=== PATIENT | male | born 1955 | race Two or more races ===

== ENCOUNTER 2020-05-18 18:42 | Inpatient (IN) | payer MEDICARE, MEDICAID ==
[~2020-05-18] VITALS: Ht 172.7 cm; Wt 81.4 kg
[2020-05-18 19:17] LABS: BASOPHILS % (AUTO) 0.3 % (0.0-2.0); EOSINOPHILS % (AUTO) 0 % (1.0-6.0); HEMATOCRIT 46.1 % (41-53); HEMOGLOBIN 15.4 g/dL (13.5-17.5); LYMPHOCYTES # (AUTO) 0.9 K/uL (1.0-4.8); LYMPHOCYTES % (AUTO) 5.3 % (22.0-44.0); MEAN CORPUSCULAR HEMOGLOBIN 30.2 pg (26.0-34.0); MEAN CORPUSCULAR HGB CONC 33.4 G/dL (31.0-37.0); MEAN CORPUSCULAR VOLUME 90 fL (80-100); MONOCYTES % (AUTO) 5.6 % (2.0-9.0); NEUTROPHILS # (AUTO) 15.6 K/uL (1.8-7.7); PLATELET COUNT (AUTO) 264 K/uL (150-450); RED BLOOD CELL COUNT(AUTO) 5.11 MIL/uL (4.50-5.90); RED CELL DISTRIBUTION WIDTH 13.1 % (11.5-14.5)
[2020-05-18 19:18] LABS: ABG BASE EXCESS 1.8 mmol/L (-2.0-3.0); ABG CARBOXYHEMOGLOBIN 0.8 % (0.0-1.5); ABG HCO3 26.4 mmol/L (22.0-26.0); ABG METHEMOGLOBIN 0.2 % (0.0-1.5); ABG PCO2 35 mmHg (35-45); ABG TOTAL HEMOGLOBIN 16.2 G/dL (12.0-18.0); PO2, ARTERIAL BG 72.7 mmHg (79.0-87.0); SOURCE, BLOOD GAS ARTERIAL; TEMPERATURE, FAHRENHEIT, BG 98.6 FAHREN (96.0-98.6)
[2020-05-18 19:19] LABS: ABG A-A DIFF O2 605.6 mmHg (10-20.0); ABG OXYGEN CONTENT 21.4 mL/dL (15.0-23.0); ABG OXYGEN SATURATION 94.9 % (95.0-98.0)
[2020-05-18 19:27] LABS: ANION GAP 11 mmol/L (8-16); CALCIUM, TOTAL 8.8 mg/dL (8.8-10.5); CARBON DIOXIDE 26 mmol/L (22-29); CHLORIDE 104 mmol/L (98-107); CREATININE 0.95 mg/dL (0.60-1.30); GLOMERULAR FILTR. RATE CALC > 60 mL/min (>60); GLUCOSE,RANDOM 198 mg/dL (70-110); POTASSIUM 3.5 mmol/L (3.5-5.1); SODIUM SERUM 141 mmol/L (136-145); UREA NITROGEN, BLOOD 27 mg/dL (7-18)
[2020-05-18 19:29] LABS: NEUTROPHILS % (AUTO) 88.8 % (40.0-70.0)
[2020-05-18 19:35] LABS: LACTIC ACID 1.4 mmol/L (0.4-2.0)
[2020-05-18 19:58] LABS: B-TYPE NATRIURETIC PEPTIDE 72 pg/mL (0-100)
[2020-05-18 20:05] LABS: O2 DEVICE,BLOOD GAS NON REBREATHER (ROOM AIR); SITE, BLOOD GAS LFT RADIAL
[2020-05-18 20:07] LABS: ALANINE AMINOTRANSFERASE 45 U/L (12-78); ALKALINE PHOSPHATASE 77 U/L (46-116); ASPARTATE AMINOTRANSFERASE 20 U/L (15-37); BILIRUBIN,TOTAL 0.8 mg/dL (0.1-1.0); C-REACTIVE PROTEIN QUANT 7.74 mg/dL (0.00-0.30); CREATINE KINASE, TOTAL ONLY 21 U/L (39-308); FERRITIN 1702 ng/mL (26-388); LACTATE DEHYDROGENASE 331 U/L (85-227); TOTAL PROTEIN, SERUM 7.3 g/dL (6.4-8.2)
[2020-05-18] MEDS ORDERED: CefTRIAXone 1 GM/DEXTROSE 50 ML IV ONE (20:15)
[2020-05-18] MEDS ORDERED: AZITHROMYCIN 500 MG/NS 250 ML IV ONE (20:15)
[2020-05-18 20:17] LABS: D-DIMER 1.02 mg/L FEU (0.00-0.50); INR 1.1 (0.9-1.1); PROTHROMBIN TIME 10.8 SEC (9.4-11.6)
[2020-05-18] MEDS ORDERED: DEXTROSE 50%-WATER 25 GM/50 ML SYRINGE IVP PRN (20:30)
[2020-05-18] MEDS ORDERED: ACETAMINOPHEN 325 MG TABLET PO PRN (20:45)
[2020-05-18] MEDS ORDERED: DEXAMETHASONE SOD PHOS 4 MG/ML VIAL IVP SCH (21:00)
[2020-05-18] MEDS ORDERED: REMDESIVIR **INVESTIGATIONAL** 200 MG in SODIUM CHLORIDE 0.9% 210 ML IV ONE (22:00)
[2020-05-18] MEDS ORDERED: SODIUM CHLORIDE 0.9% 500 ML IV ONE (22:56)
[2020-05-18] MEDS: DOCUSATE SODIUM 100 MG CAPSULE PO SCH (23:01)
[2020-05-18] MEDS: ZINC SULFATE 220 MG CAPSULE PO SCH (23:01)
[2020-05-18] MEDS: ENOXAPARIN SODIUM 40 MG/0.4 ML PF SYRINGE SQ SCH (23:01)
[2020-05-19] VITALS (12 sets, daily range): BP systolic 115–155; BP diastolic 57–97
[2020-05-19] MEDS: DEXAMETHASONE SOD PHOS 4 MG/ML VIAL IVP SCH ×4 (00:13→18:18)
[2020-05-19] MEDS: INSULIN LISPRO 100 UNITS/ML SQ PRN ×4 (05:45→22:18)
[2020-05-19 05:53] LABS: GLUCOMETER DEV NAME(LOC) 5N.3; GLUCOSE,POINT OF CARE 197 MG/DL (70-110)
[2020-05-19 07:07] LABS: ALANINE AMINOTRANSFERASE 40 U/L (12-78); ALKALINE PHOSPHATASE 79 U/L (46-116); ANION GAP 12 mmol/L (8-16); ASPARTATE AMINOTRANSFERASE 20 U/L (15-37); BILIRUBIN,TOTAL 1.2 mg/dL (0.1-1.0); CALCIUM, TOTAL 8.7 mg/dL (8.8-10.5); CARBON DIOXIDE 24 mmol/L (22-29); CHLORIDE 103 mmol/L (98-107); GLOMERULAR FILTR. RATE CALC > 60 mL/min (>60); GLUCOSE,RANDOM 194 mg/dL (70-110); POTASSIUM 3.8 mmol/L (3.5-5.1); SODIUM SERUM 139 mmol/L (136-145); TOTAL PROTEIN, SERUM 7.4 g/dL (6.4-8.2); UREA NITROGEN, BLOOD 26 mg/dL (7-18)
[2020-05-19] MEDS: FAMOTIDINE 20 MG TABLET PO SCH (08:47)
[2020-05-19] MEDS: DOCUSATE SODIUM 100 MG CAPSULE PO SCH ×2 (08:47→21:10)
[2020-05-19] MEDS: ZINC SULFATE 220 MG CAPSULE PO SCH ×2 (08:47→21:10)
[2020-05-19] MEDS: ENOXAPARIN SODIUM 40 MG/0.4 ML PF SYRINGE SQ SCH ×2 (08:47→21:10)
[2020-05-19 12:37] LABS: C-REACTIVE PROTEIN QUANT 7.47 mg/dL (0.00-0.30); FERRITIN 1819 ng/mL (26-388); LACTATE DEHYDROGENASE 516 U/L (85-227)
[2020-05-19 12:58] LABS: D-DIMER 0.9 mg/L FEU (0.00-0.50); INR 1.1 (0.9-1.1); PROTHROMBIN TIME 11.4 SEC (9.4-11.6)
[2020-05-19 13:06] LABS: GLUCOMETER DEV NAME(LOC) 5S.1; GLUCOSE,POINT OF CARE 218 MG/DL (70-110)
[2020-05-19 19:48] LABS: GLUCOMETER DEV NAME(LOC) 5S.2A; GLUCOSE,POINT OF CARE 189 MG/DL (70-110)
[2020-05-19] MEDS ORDERED: SODIUM CHLORIDE 0.9% 500 ML IV ONE (21:49)
[2020-05-20 00:30] VITALS: BP 128/80
[2020-05-20 00:32] LABS: GLUCOMETER DEV NAME(LOC) 5N.3; GLUCOSE,POINT OF CARE 170 MG/DL (70-110)
[2020-05-20] MEDS: REMDESIVIR **INVESTIGATIONAL** 100 MG in SODIUM CHLORIDE 0.9% 230 ML IV SCH ×2 (00:44→23:31)
[2020-05-20] MEDS: DEXAMETHASONE SOD PHOS 4 MG/ML VIAL IVP SCH ×4 (00:45→17:13)
[2020-05-20 04:45] VITALS: BP 133/45
[2020-05-20] MEDS: INSULIN LISPRO 100 UNITS/ML SQ PRN ×4 (06:08→21:20)
[2020-05-20 06:10] LABS: GLUCOMETER DEV NAME(LOC) 5S.2A; GLUCOSE,POINT OF CARE 176 MG/DL (70-110)
[2020-05-20 07:19] VITALS: BP 136/76
[2020-05-20 08:01] LABS: BASOPHILS % (AUTO) 0.2 % (0.0-2.0); EOSINOPHILS % (AUTO) 0 % (1.0-6.0); HEMATOCRIT 42.9 % (41-53); HEMOGLOBIN 14.7 g/dL (13.5-17.5); LYMPHOCYTES # (AUTO) 0.6 K/uL (1.0-4.8); LYMPHOCYTES % (AUTO) 5.1 % (22.0-44.0); MEAN CORPUSCULAR HGB CONC 34.2 G/dL (31.0-37.0); MEAN CORPUSCULAR VOLUME 91 fL (80-100); MONOCYTES # (AUTO) 0.6 K/uL (0.1-1.0); MONOCYTES % (AUTO) 4.8 % (2.0-9.0); NEUTROPHILS # (AUTO) 10.7 K/uL (1.8-7.7); PLATELET COUNT (AUTO) 235 K/uL (150-450); RED BLOOD CELL COUNT(AUTO) 4.74 MIL/uL (4.50-5.90); RED CELL DISTRIBUTION WIDTH 13.4 % (11.5-14.5)
[2020-05-20 08:21] LABS: NEUTROPHILS % (AUTO) 89.9 % (40.0-70.0)
[2020-05-20 09:00] LABS: ALANINE AMINOTRANSFERASE 37 U/L (12-78); ALBUMIN 2.8 g/dL (3.4-5.0); ALKALINE PHOSPHATASE 75 U/L (46-116); ANION GAP 10 mmol/L (8-16); ASPARTATE AMINOTRANSFERASE 20 U/L (15-37); BILIRUBIN,TOTAL 1.2 mg/dL (0.1-1.0); C-REACTIVE PROTEIN QUANT 7.27 mg/dL (0.00-0.30); CALCIUM, TOTAL 8.5 mg/dL (8.8-10.5); CARBON DIOXIDE 25 mmol/L (22-29); CHLORIDE 103 mmol/L (98-107); CREATININE 0.85 mg/dL (0.60-1.30); FERRITIN 1877 ng/mL (26-388); GLOMERULAR FILTR. RATE CALC > 60 mL/min (>60); GLUCOSE,RANDOM 178 mg/dL (70-110); LACTATE DEHYDROGENASE 333 U/L (85-227); POTASSIUM 4.1 mmol/L (3.5-5.1); SODIUM SERUM 138 mmol/L (136-145); UREA NITROGEN, BLOOD 34 mg/dL (7-18)
[2020-05-20] MEDS: FAMOTIDINE 20 MG TABLET PO SCH (09:46)
[2020-05-20] MEDS: DOCUSATE SODIUM 100 MG CAPSULE PO SCH ×2 (09:46→21:05)
[2020-05-20] MEDS: ENOXAPARIN SODIUM 40 MG/0.4 ML PF SYRINGE SQ SCH ×2 (09:46→21:08)
[2020-05-20] MEDS: ZINC SULFATE 220 MG CAPSULE PO SCH ×2 (09:46→21:05)
[2020-05-20 10:55] LABS: THYROID STIMULATING HORMONE 0.98 uIU/mL (0.36-3.74)
[2020-05-20 11:40] VITALS: BP 137/76
[2020-05-20 12:20] LABS: GLUCOMETER DEV NAME(LOC) 5N.3; GLUCOSE,POINT OF CARE 245 MG/DL (70-110)
[2020-05-20 16:00] VITALS: BP 120/79
[2020-05-20 18:06] LABS: GLUCOMETER DEV NAME(LOC) 5S.2A; GLUCOSE,POINT OF CARE 211 MG/DL (70-110)
[2020-05-20 20:16] VITALS: BP 136/74
[2020-05-20 21:36] LABS: GLUCOMETER DEV NAME(LOC) 5S.1; GLUCOSE,POINT OF CARE 272 MG/DL (70-110)
[2020-05-21] VITALS (7 sets, daily range): BP systolic 114–146; BP diastolic 56–87
[2020-05-21] MEDS ORDERED: TOCILIZUMAB 600 MG in SODIUM CHLORIDE 0.9% 70 ML IV ONE ×2
[2020-05-21] MEDS: DEXAMETHASONE SOD PHOS 4 MG/ML VIAL IVP SCH ×3 (00:52→13:19)
[2020-05-21] MEDS ORDERED: SODIUM CHLORIDE 0.9% 250 ML IV ONE (01:04)
[2020-05-21] MEDS: INSULIN LISPRO 100 UNITS/ML SQ PRN ×4 (06:30→22:37)
[2020-05-21 07:11] LABS: BASOPHILS % (AUTO) 0.3 % (0.0-2.0); EOSINOPHILS % (AUTO) 0 % (1.0-6.0); HEMATOCRIT 42.8 % (41-53); HEMOGLOBIN 14.7 g/dL (13.5-17.5); LYMPHOCYTES # (AUTO) 0.6 K/uL (1.0-4.8); LYMPHOCYTES % (AUTO) 4.6 % (22.0-44.0); MEAN CORPUSCULAR HEMOGLOBIN 30.9 pg (26.0-34.0); MEAN CORPUSCULAR HGB CONC 34.4 G/dL (31.0-37.0); MEAN CORPUSCULAR VOLUME 90 fL (80-100); MONOCYTES # (AUTO) 0.5 K/uL (0.1-1.0); NEUTROPHILS # (AUTO) 11.6 K/uL (1.8-7.7); PLATELET COUNT (AUTO) 260 K/uL (150-450); RED BLOOD CELL COUNT(AUTO) 4.76 MIL/uL (4.50-5.90); RED CELL DISTRIBUTION WIDTH 13.3 % (11.5-14.5)
[2020-05-21 07:14] LABS: NEUTROPHILS % (AUTO) 91.1 % (40.0-70.0)
[2020-05-21 07:46] LABS: GLUCOMETER DEV NAME(LOC) 5S.2A; GLUCOSE,POINT OF CARE 232 MG/DL (70-110)
[2020-05-21 07:53] LABS: ALANINE AMINOTRANSFERASE 31 U/L (12-78); ALBUMIN 2.6 g/dL (3.4-5.0); ALKALINE PHOSPHATASE 72 U/L (46-116); ANION GAP 11 mmol/L (8-16); ASPARTATE AMINOTRANSFERASE 15 U/L (15-37); BILIRUBIN,TOTAL 1.1 mg/dL (0.1-1.0); C-REACTIVE PROTEIN QUANT 3.71 mg/dL (0.00-0.30); CALCIUM, TOTAL 8.4 mg/dL (8.8-10.5); CARBON DIOXIDE 25 mmol/L (22-29); CHLORIDE 102 mmol/L (98-107); CREATININE 0.83 mg/dL (0.60-1.30); FERRITIN 1232 ng/mL (26-388); GLOMERULAR FILTR. RATE CALC > 60 mL/min (>60); GLUCOSE,RANDOM 223 mg/dL (70-110); POTASSIUM 4.3 mmol/L (3.5-5.1); SODIUM SERUM 138 mmol/L (136-145); TOTAL PROTEIN, SERUM 6.7 g/dL (6.4-8.2); UREA NITROGEN, BLOOD 32 mg/dL (7-18)
[2020-05-21] MEDS: DOCUSATE SODIUM 100 MG CAPSULE PO SCH ×2 (08:20→22:35)
[2020-05-21] MEDS: FAMOTIDINE 20 MG TABLET PO SCH (08:20)
[2020-05-21] MEDS: ZINC SULFATE 220 MG CAPSULE PO SCH ×2 (08:20→22:35)
[2020-05-21] MEDS: ENOXAPARIN SODIUM 40 MG/0.4 ML PF SYRINGE SQ SCH ×2 (08:22→22:34)
[2020-05-21 17:22] LABS: GLUCOMETER DEV NAME(LOC) 5N.3; GLUCOSE,POINT OF CARE 235 MG/DL (70-110)
[2020-05-21] MEDS: REMDESIVIR **INVESTIGATIONAL** 100 MG in SODIUM CHLORIDE 0.9% 230 ML IV SCH (22:49)
[2020-05-21 23:14] LABS: GLUCOSE,POINT OF CARE 247 MG/DL (70-110)
[2020-05-22] VITALS: BP 144/77
[2020-05-22 04:00] VITALS: BP 114/55
[2020-05-22 06:07] LABS: BASOPHILS % (AUTO) 0.2 % (0.0-2.0); EOSINOPHILS % (AUTO) 0.3 % (1.0-6.0); HEMATOCRIT 46.2 % (41-53); HEMOGLOBIN 15.8 g/dL (13.5-17.5); LYMPHOCYTES # (AUTO) 0.9 K/uL (1.0-4.8); LYMPHOCYTES % (AUTO) 8.7 % (22.0-44.0); MEAN CORPUSCULAR HEMOGLOBIN 30.9 pg (26.0-34.0); MEAN CORPUSCULAR HGB CONC 34.1 G/dL (31.0-37.0); MEAN CORPUSCULAR VOLUME 91 fL (80-100); MONOCYTES # (AUTO) 0.5 K/uL (0.1-1.0); MONOCYTES % (AUTO) 4.6 % (2.0-9.0); PLATELET COUNT (AUTO) 254 K/uL (150-450); RED CELL DISTRIBUTION WIDTH 13.1 % (11.5-14.5)
[2020-05-22 06:27] LABS: NEUTROPHILS % (AUTO) 86.2 % (40.0-70.0)
[2020-05-22 06:46] LABS: ALANINE AMINOTRANSFERASE 32 U/L (12-78); ALBUMIN 2.9 g/dL (3.4-5.0); ALKALINE PHOSPHATASE 78 U/L (46-116); ANION GAP 8 mmol/L (8-16); ASPARTATE AMINOTRANSFERASE 19 U/L (15-37); C-REACTIVE PROTEIN QUANT 2.36 mg/dL (0.00-0.30); CALCIUM, TOTAL 8.8 mg/dL (8.8-10.5); CARBON DIOXIDE 26 mmol/L (22-29); CHLORIDE 103 mmol/L (98-107); CREATININE 0.77 mg/dL (0.60-1.30); FERRITIN 867 ng/mL (26-388); GLOMERULAR FILTR. RATE CALC > 60 mL/min (>60); GLUCOSE,RANDOM 149 mg/dL (70-110); POTASSIUM 4.1 mmol/L (3.5-5.1); SODIUM SERUM 137 mmol/L (136-145); TOTAL PROTEIN, SERUM 6.9 g/dL (6.4-8.2); UREA NITROGEN, BLOOD 30 mg/dL (7-18)
[2020-05-22 08:00] VITALS: BP 127/79
[2020-05-22] MEDS ORDERED: DEXAMETHASONE SOD PHOS 4 MG/ML VIAL IVP SCH (09:00)
[2020-05-22] MEDS: DOCUSATE SODIUM 100 MG CAPSULE PO SCH ×2 (09:00→21:22)
[2020-05-22] MEDS: ENOXAPARIN SODIUM 40 MG/0.4 ML PF SYRINGE SQ SCH ×2 (09:12→23:20)
[2020-05-22] MEDS: DEXAMETHASONE SOD PHOS 4 MG/ML VIAL IVP SCH (09:13)
[2020-05-22] MEDS: FAMOTIDINE 20 MG TABLET PO SCH (09:13)
[2020-05-22] MEDS: ZINC SULFATE 220 MG CAPSULE PO SCH ×2 (09:14→21:22)
[2020-05-22 10:58] LABS: GLUCOSE,POINT OF CARE 146 MG/DL (70-110)
[2020-05-22 12:00] VITALS: BP 136/73
[2020-05-22 16:00] VITALS: BP 118/79
[2020-05-22 16:08] LABS: ABG A-A DIFF O2 603.1 mmHg (10-20.0); ABG BASE EXCESS -1.2 mmol/L (-2.0-3.0); ABG CARBOXYHEMOGLOBIN 0.7 % (0.0-1.5); ABG HCO3 24.2 mmol/L (22.0-26.0); ABG METHEMOGLOBIN 0.2 % (0.0-1.5); ABG OXYGEN CONTENT 22.9 mL/dL (15.0-23.0); ABG OXYGEN SATURATION 95.6 % (95.0-98.0); ABG OXYHEMOGLOBIN 94.7 % (94.0-100.0); ABG PCO2 34 mmHg (35-45); ABG PH 7.451 (7.35-7.450); ABG TOTAL HEMOGLOBIN 17.2 G/dL (12.0-18.0); PO2, ARTERIAL BG 77.2 mmHg (79.0-87.0); SOURCE, BLOOD GAS ARTERIAL; TEMPERATURE, FAHRENHEIT, BG 98.1 FAHREN (96.0-98.6)
[2020-05-22 16:09] LABS: O2 DEVICE,BLOOD GAS HI FL CANNULA (ROOM AIR); SITE, BLOOD GAS RT RADIAL
[2020-05-22 20:00] VITALS: BP 113/76
[2020-05-22 21:41] LABS: GLUCOMETER DEV NAME(LOC) 4E.2; GLUCOSE,POINT OF CARE 213 MG/DL (70-110)
[2020-05-22] MEDS: REMDESIVIR **INVESTIGATIONAL** 100 MG in SODIUM CHLORIDE 0.9% 230 ML IV SCH (23:20)
[2020-05-22] MEDS: INSULIN LISPRO 100 UNITS/ML SQ PRN (23:46)
[2020-05-23] VITALS: BP 115/71
[2020-05-23 04:00] VITALS: BP 90/54
[2020-05-23 06:17] LABS: BASOPHILS % (AUTO) 0.4 % (0.0-2.0); EOSINOPHILS % (AUTO) 1.9 % (1.0-6.0); HEMATOCRIT 46.6 % (41-53); HEMOGLOBIN 15.8 g/dL (13.5-17.5); LYMPHOCYTES # (AUTO) 0.8 K/uL (1.0-4.8); LYMPHOCYTES % (AUTO) 7.6 % (22.0-44.0); MEAN CORPUSCULAR HEMOGLOBIN 30.6 pg (26.0-34.0); MEAN CORPUSCULAR HGB CONC 33.8 G/dL (31.0-37.0); MEAN CORPUSCULAR VOLUME 90 fL (80-100); MONOCYTES # (AUTO) 0.4 K/uL (0.1-1.0); MONOCYTES % (AUTO) 3.7 % (2.0-9.0); NEUTROPHILS # (AUTO) 9.7 K/uL (1.8-7.7); PLATELET COUNT (AUTO) 242 K/uL (150-450); RED BLOOD CELL COUNT(AUTO) 5.16 MIL/uL (4.50-5.90)
[2020-05-23 06:42] LABS: NEUTROPHILS % (AUTO) 86.4 % (40.0-70.0)
[2020-05-23 06:44] LABS: GLUCOMETER DEV NAME(LOC) 4E.2; GLUCOSE,POINT OF CARE 174 MG/DL (70-110)
[2020-05-23 06:44] LABS: ALANINE AMINOTRANSFERASE 35 U/L (12-78); ALBUMIN 2.8 g/dL (3.4-5.0); ALKALINE PHOSPHATASE 84 U/L (46-116); ANION GAP 7 mmol/L (8-16); ASPARTATE AMINOTRANSFERASE 21 U/L (15-37); C-REACTIVE PROTEIN QUANT 1.13 mg/dL (0.00-0.30); CALCIUM, TOTAL 8.6 mg/dL (8.8-10.5); CARBON DIOXIDE 28 mmol/L (22-29); CHLORIDE 103 mmol/L (98-107); CREATININE 0.84 mg/dL (0.60-1.30); FERRITIN 950 ng/mL (26-388); GLOMERULAR FILTR. RATE CALC > 60 mL/min (>60); GLUCOSE,RANDOM 117 mg/dL (70-110); SODIUM SERUM 138 mmol/L (136-145); TOTAL PROTEIN, SERUM 6.5 g/dL (6.4-8.2); UREA NITROGEN, BLOOD 31 mg/dL (7-18)
[2020-05-23 06:48] LABS: GLUCOSE,POINT OF CARE 106 MG/DL (70-110)
[2020-05-23 08:00] VITALS: BP 128/77
[2020-05-23] MEDS: DEXAMETHASONE SOD PHOS 4 MG/ML VIAL IVP SCH (08:17)
[2020-05-23] MEDS: ZINC SULFATE 220 MG CAPSULE PO SCH ×2 (08:18→21:07)
[2020-05-23] MEDS: ENOXAPARIN SODIUM 40 MG/0.4 ML PF SYRINGE SQ SCH (08:18)
[2020-05-23] MEDS: FAMOTIDINE 20 MG TABLET PO SCH (08:18)
[2020-05-23] MEDS: DOCUSATE SODIUM 100 MG CAPSULE PO SCH ×2 (09:00→21:07)
[2020-05-23] MEDS ORDERED: SODIUM CHLORIDE 0.9% 500 ML IV ONE (10:55)
[2020-05-23 12:00] VITALS: BP 115/58
[2020-05-23 16:00] VITALS: BP 99/69
[2020-05-23 16:06] LABS: QUANTIFERON+, Nil Value 0.01 IU/mL; QUANTIFERON+,Mitogen Value 0.23 IU/mL; QUANTIFERON+,TB1 Antigen Value 0.01 IU/mL; QUANTIFERON, TB GOLD PLUS Indeterminate (Negative)
[2020-05-23 20:00] VITALS: BP 111/65
[2020-05-23] MEDS: ENOXAPARIN SODIUM 60 MG/0.6 ML PF SYRINGE SQ SCH (21:11)
[2020-05-23 23:04] LABS: GLUCOSE,POINT OF CARE 197 MG/DL (70-110)
[2020-05-24] VITALS: BP 94/59
[2020-05-24 04:00] VITALS: BP 97/58
[2020-05-24 06:09] LABS: GLUCOSE,POINT OF CARE 171 MG/DL (70-110)
[2020-05-24 07:10] LABS: BASOPHILS % (AUTO) 0.1 % (0.0-2.0); EOSINOPHILS % (AUTO) 3.1 % (1.0-6.0); HEMOGLOBIN 16.1 g/dL (13.5-17.5); LYMPHOCYTES # (AUTO) 0.8 K/uL (1.0-4.8); MEAN CORPUSCULAR HEMOGLOBIN 30.9 pg (26.0-34.0); MEAN CORPUSCULAR HGB CONC 34.2 G/dL (31.0-37.0); MEAN CORPUSCULAR VOLUME 90 fL (80-100); MONOCYTES # (AUTO) 0.4 K/uL (0.1-1.0); NEUTROPHILS # (AUTO) 9.3 K/uL (1.8-7.7); PLATELET COUNT (AUTO) 230 K/uL (150-450); RED CELL DISTRIBUTION WIDTH 13.1 % (11.5-14.5)
[2020-05-24 07:16] LABS: NEUTROPHILS % (AUTO) 85.8 % (40.0-70.0)
[2020-05-24 08:00] VITALS: BP 99/48
[2020-05-24] MEDS ORDERED: SODIUM CHLORIDE 0.9% 1,000 ML IV ONE (08:15)
[2020-05-24 08:16] LABS: ALANINE AMINOTRANSFERASE 41 U/L (12-78); ALBUMIN 2.9 g/dL (3.4-5.0); ALKALINE PHOSPHATASE 101 U/L (46-116); ANION GAP 11 mmol/L (8-16); ASPARTATE AMINOTRANSFERASE 25 U/L (15-37); BILIRUBIN,TOTAL 1.3 mg/dL (0.1-1.0); C-REACTIVE PROTEIN QUANT 0.57 mg/dL (0.00-0.30); CALCIUM, TOTAL 8.7 mg/dL (8.8-10.5); CARBON DIOXIDE 26 mmol/L (22-29); CHLORIDE 99 mmol/L (98-107); CREATININE 0.88 mg/dL (0.60-1.30); FERRITIN 967 ng/mL (26-388); GLOMERULAR FILTR. RATE CALC > 60 mL/min (>60); GLUCOSE,RANDOM 125 mg/dL (70-110); POTASSIUM 4.4 mmol/L (3.5-5.1); SODIUM SERUM 136 mmol/L (136-145); TOTAL PROTEIN, SERUM 6.6 g/dL (6.4-8.2); UREA NITROGEN, BLOOD 34 mg/dL (7-18)
[2020-05-24] MEDS: DEXAMETHASONE SOD PHOS 4 MG/ML VIAL IVP SCH (08:47)
[2020-05-24] MEDS: FAMOTIDINE 20 MG TABLET PO SCH (08:47)
[2020-05-24] MEDS: ZINC SULFATE 220 MG CAPSULE PO SCH ×2 (08:48→21:27)
[2020-05-24] MEDS: ENOXAPARIN SODIUM 60 MG/0.6 ML PF SYRINGE SQ SCH ×2 (08:48→21:26)
[2020-05-24] MEDS: DOCUSATE SODIUM 100 MG CAPSULE PO SCH ×2 (08:48→21:26)
[2020-05-24 12:00] VITALS: BP 112/72
[2020-05-24] MEDS: INSULIN LISPRO 100 UNITS/ML SQ PRN (12:08)
[2020-05-24 15:18] LABS: GLUCOSE,POINT OF CARE 128 MG/DL (70-110)
[2020-05-24 15:18] LABS: GLUCOSE,POINT OF CARE 212 MG/DL (70-110)
[2020-05-24 16:00] VITALS: BP_SYST 111; BP_SYST 135; BP_DIAS 61; BP_DIAS 79
[2020-05-24 18:27] LABS: GLUCOSE,POINT OF CARE 178 MG/DL (70-110)
[2020-05-24 20:00] VITALS: BP 121/72
[2020-05-25 04:00] VITALS: BP 127/72
[2020-05-25 06:51] LABS: BASOPHILS % (AUTO) 0.2 % (0.0-2.0); EOSINOPHILS % (AUTO) 2.8 % (1.0-6.0); HEMATOCRIT 48.2 % (41-53); HEMOGLOBIN 16.5 g/dL (13.5-17.5); LYMPHOCYTES # (AUTO) 0.9 K/uL (1.0-4.8); LYMPHOCYTES % (AUTO) 6.5 % (22.0-44.0); MEAN CORPUSCULAR HEMOGLOBIN 30.9 pg (26.0-34.0); MEAN CORPUSCULAR HGB CONC 34.3 G/dL (31.0-37.0); MEAN CORPUSCULAR VOLUME 90 fL (80-100); MONOCYTES # (AUTO) 0.7 K/uL (0.1-1.0); MONOCYTES % (AUTO) 4.8 % (2.0-9.0); NEUTROPHILS # (AUTO) 12.3 K/uL (1.8-7.7); PLATELET COUNT (AUTO) 199 K/uL (150-450); RED BLOOD CELL COUNT(AUTO) 5.33 MIL/uL (4.50-5.90); RED CELL DISTRIBUTION WIDTH 13.3 % (11.5-14.5)
[2020-05-25 06:55] LABS: GLUCOSE,POINT OF CARE 135 MG/DL (70-110)
[2020-05-25 07:00] LABS: NEUTROPHILS % (AUTO) 85.7 % (40.0-70.0)
[2020-05-25 07:28] LABS: ALANINE AMINOTRANSFERASE 47 U/L (12-78); ALKALINE PHOSPHATASE 113 U/L (46-116); ANION GAP 12 mmol/L (8-16); ASPARTATE AMINOTRANSFERASE 34 U/L (15-37); BILIRUBIN,TOTAL 1.2 mg/dL (0.1-1.0); C-REACTIVE PROTEIN QUANT 0.31 mg/dL (0.00-0.30); CALCIUM, TOTAL 8.5 mg/dL (8.8-10.5); CARBON DIOXIDE 24 mmol/L (22-29); CHLORIDE 100 mmol/L (98-107); CREATININE 0.76 mg/dL (0.60-1.30); FERRITIN 883 ng/mL (26-388); GLOMERULAR FILTR. RATE CALC > 60 mL/min (>60); GLUCOSE,RANDOM 134 mg/dL (70-110); POTASSIUM 4.3 mmol/L (3.5-5.1); SODIUM SERUM 136 mmol/L (136-145); TOTAL PROTEIN, SERUM 6.6 g/dL (6.4-8.2); UREA NITROGEN, BLOOD 29 mg/dL (7-18)
[2020-05-25 08:00] VITALS: BP 124/68
[2020-05-25] MEDS ORDERED: SODIUM CHLORIDE 0.9% 1,000 ML IV ONE (08:45)
[2020-05-25] MEDS: DEXAMETHASONE SOD PHOS 4 MG/ML VIAL IVP SCH (10:05)
[2020-05-25] MEDS: ZINC SULFATE 220 MG CAPSULE PO SCH ×2 (10:05→21:11)
[2020-05-25] MEDS: FAMOTIDINE 20 MG TABLET PO SCH (10:05)
[2020-05-25] MEDS: DOCUSATE SODIUM 100 MG CAPSULE PO SCH ×2 (10:05→21:11)
[2020-05-25] MEDS: ENOXAPARIN SODIUM 60 MG/0.6 ML PF SYRINGE SQ SCH ×2 (10:07→21:12)
[2020-05-25 11:02] LABS: ABG A-A DIFF O2 644.4 mmHg (10-20.0); ABG BASE EXCESS -2.6 mmol/L (-2.0-3.0); ABG CARBOXYHEMOGLOBIN 0.9 % (0.0-1.5); ABG HCO3 22.8 mmol/L (22.0-26.0); ABG METHEMOGLOBIN 0.1 % (0.0-1.5); ABG OXYGEN CONTENT 17.7 mL/dL (15.0-23.0); ABG OXYHEMOGLOBIN 73.2 % (94.0-100.0); ABG PCO2 30 mmHg (35-45); ABG PH 7.464 (7.35-7.450); ABG TOTAL HEMOGLOBIN 17.3 G/dL (12.0-18.0); SOURCE, BLOOD GAS ARTERIAL; TEMPERATURE, FAHRENHEIT, BG 98.6 FAHREN (96.0-98.6)
[2020-05-25 11:03] LABS: ABG OXYGEN SATURATION 73.9 % (95.0-98.0); O2 DEVICE,BLOOD GAS HFNC (ROOM AIR); PO2, ARTERIAL BG 38.4 mmHg (79.0-87.0); SITE, BLOOD GAS LFT RADIAL
[2020-05-25 12:00] VITALS: BP 120/74
[2020-05-25 14:51] LABS: GLUCOMETER DEV NAME(LOC) 4E.2; GLUCOSE,POINT OF CARE 150 MG/DL (70-110)
[2020-05-25 16:00] VITALS: BP 111/66
[2020-05-25] MEDS: INSULIN LISPRO 100 UNITS/ML SQ PRN ×2 (17:13→23:03)
[2020-05-25 17:59] LABS: GLUCOSE,POINT OF CARE 192 MG/DL (70-110)
[2020-05-25 20:00] VITALS: BP 110/70
[2020-05-26] VITALS: BP 110/70
[2020-05-26 04:07] LABS: GLUCOMETER DEV NAME(LOC) 4E.2; GLUCOSE,POINT OF CARE 155 MG/DL (70-110)
[2020-05-26 06:39] LABS: BASOPHILS % (AUTO) 0.2 % (0.0-2.0); HEMATOCRIT 47.1 % (41-53); HEMOGLOBIN 16.4 g/dL (13.5-17.5); LYMPHOCYTES # (AUTO) 1.1 K/uL (1.0-4.8); LYMPHOCYTES % (AUTO) 6.9 % (22.0-44.0); MEAN CORPUSCULAR HEMOGLOBIN 31.1 pg (26.0-34.0); MEAN CORPUSCULAR HGB CONC 34.8 G/dL (31.0-37.0); MEAN CORPUSCULAR VOLUME 89 fL (80-100); MONOCYTES # (AUTO) 0.6 K/uL (0.1-1.0); NEUTROPHILS # (AUTO) 13.7 K/uL (1.8-7.7); PLATELET COUNT (AUTO) 194 K/uL (150-450); RED BLOOD CELL COUNT(AUTO) 5.28 MIL/uL (4.50-5.90)
[2020-05-26 06:45] LABS: NEUTROPHILS % (AUTO) 86.9 % (40.0-70.0)
[2020-05-26 07:22] LABS: ALANINE AMINOTRANSFERASE 60 U/L (12-78); ALBUMIN 2.9 g/dL (3.4-5.0); ALKALINE PHOSPHATASE 116 U/L (46-116); ANION GAP 10 mmol/L (8-16); ASPARTATE AMINOTRANSFERASE 36 U/L (15-37); BILIRUBIN,TOTAL 1.3 mg/dL (0.1-1.0); C-REACTIVE PROTEIN QUANT 0.24 mg/dL (0.00-0.30); CALCIUM, TOTAL 8.6 mg/dL (8.8-10.5); CARBON DIOXIDE 25 mmol/L (22-29); CHLORIDE 100 mmol/L (98-107); CREATININE 0.82 mg/dL (0.60-1.30); FERRITIN 864 ng/mL (26-388); GLOMERULAR FILTR. RATE CALC > 60 mL/min (>60); GLUCOSE,RANDOM 111 mg/dL (70-110); POTASSIUM 4.3 mmol/L (3.5-5.1); SODIUM SERUM 135 mmol/L (136-145); TOTAL PROTEIN, SERUM 6.5 g/dL (6.4-8.2); UREA NITROGEN, BLOOD 28 mg/dL (7-18)
[2020-05-26 08:00] VITALS: BP 139/91
[2020-05-26] MEDS: ZINC SULFATE 220 MG CAPSULE PO SCH ×2 (08:00→21:09)
[2020-05-26] MEDS: FAMOTIDINE 20 MG TABLET PO SCH (08:01)
[2020-05-26] MEDS: DOCUSATE SODIUM 100 MG CAPSULE PO SCH ×2 (08:01→21:09)
[2020-05-26] MEDS: DEXAMETHASONE SOD PHOS 4 MG/ML VIAL IVP SCH (08:01)
[2020-05-26] MEDS: ENOXAPARIN SODIUM 60 MG/0.6 ML PF SYRINGE SQ SCH ×2 (08:01→21:09)
[2020-05-26 12:00] VITALS: BP 130/71
[2020-05-26 12:19] LABS: GLUCOMETER DEV NAME(LOC) 4E.2; GLUCOSE,POINT OF CARE 184 MG/DL (70-110)
[2020-05-26 13:32] LABS: GLUCOSE,POINT OF CARE 116 MG/DL (70-110)
[2020-05-26 16:00] VITALS: BP 130/82
[2020-05-26] MEDS: INSULIN LISPRO 100 UNITS/ML SQ PRN (17:27)
[2020-05-26 20:00] VITALS: BP 130/80
[2020-05-26 20:39] LABS: GLUCOSE,POINT OF CARE 203 MG/DL (70-110)
[2020-05-27] VITALS: BP 130/82
[2020-05-27 04:00] VITALS: BP 131/58
[2020-05-27 05:40] LABS: BASOPHILS % (AUTO) 0.4 % (0.0-2.0); EOSINOPHILS % (AUTO) 1.6 % (1.0-6.0); HEMATOCRIT 52.7 % (41-53); HEMOGLOBIN 18.1 g/dL (13.5-17.5); LYMPHOCYTES # (AUTO) 1.4 K/uL (1.0-4.8); LYMPHOCYTES % (AUTO) 8.6 % (22.0-44.0); MEAN CORPUSCULAR HEMOGLOBIN 30.7 pg (26.0-34.0); MEAN CORPUSCULAR HGB CONC 34.3 G/dL (31.0-37.0); MEAN CORPUSCULAR VOLUME 90 fL (80-100); MONOCYTES # (AUTO) 0.7 K/uL (0.1-1.0); MONOCYTES % (AUTO) 4.5 % (2.0-9.0); NEUTROPHILS # (AUTO) 13.7 K/uL (1.8-7.7); NEUTROPHILS % (AUTO) 84.9 % (40.0-70.0); PLATELET COUNT (AUTO) 198 K/uL (150-450); RED BLOOD CELL COUNT(AUTO) 5.89 MIL/uL (4.50-5.90); RED CELL DISTRIBUTION WIDTH 13.3 % (11.5-14.5)
[2020-05-27 06:07] LABS: ANION GAP 10 mmol/L (8-16); CALCIUM, TOTAL 8.7 mg/dL (8.8-10.5); CARBON DIOXIDE 23 mmol/L (22-29); CHLORIDE 100 mmol/L (98-107); CREATININE 0.79 mg/dL (0.60-1.30); FERRITIN 881 ng/mL (26-388); GLOMERULAR FILTR. RATE CALC > 60 mL/min (>60); GLUCOSE,RANDOM 137 mg/dL (70-110); POTASSIUM 4.7 mmol/L (3.5-5.1); SODIUM SERUM 133 mmol/L (136-145); UREA NITROGEN, BLOOD 26 mg/dL (7-18)
[2020-05-27 06:54] LABS: GLUCOMETER DEV NAME(LOC) 4E.2; GLUCOSE,POINT OF CARE 156 MG/DL (70-110)
[2020-05-27] MEDS ORDERED: PROPOFOL 1% 20 ML VIAL IVP ONE (07:33)
[2020-05-27] MEDS ORDERED: ROCURONIUM BROMIDE 10 MG/ML 5 ML VIAL IVP ONE (07:33)
[2020-05-27] MEDS ORDERED: LIDOCAINE/PF 2% 5 ML SYRINGE IVP ONE (07:33)
[2020-05-27] MEDS: FAMOTIDINE 20 MG TABLET PO SCH (07:54)
[2020-05-27] MEDS: ZINC SULFATE 220 MG CAPSULE PO SCH ×2 (07:54→21:14)
[2020-05-27] MEDS: ENOXAPARIN SODIUM 60 MG/0.6 ML PF SYRINGE SQ SCH ×2 (07:54→21:14)
[2020-05-27] MEDS: DOCUSATE SODIUM 100 MG CAPSULE PO SCH ×2 (07:55→21:13)
[2020-05-27] MEDS: DEXAMETHASONE SOD PHOS 4 MG/ML VIAL IVP SCH (07:55)
[2020-05-27 08:00] VITALS: BP 116/62
[2020-05-27 11:33] LABS: GLUCOSE,POINT OF CARE 202 MG/DL (70-110)
[2020-05-27] MEDS: INSULIN LISPRO 100 UNITS/ML SQ PRN (11:41)
[2020-05-27 12:00] VITALS: BP 113/73
[2020-05-27 12:41] LABS: GLUCOSE,POINT OF CARE 135 MG/DL (70-110)
[2020-05-27] MEDS ORDERED: SODIUM CHLORIDE 0.9% 500 ML IV ONE (15:11)
[2020-05-27] MEDS ORDERED: FentaNYL CITRATE-PF 100 MCG/2 ML VIAL IVP ONE (15:15)
[2020-05-27] MEDS ORDERED: MIDAZOLAM HCL 2 MG/2 ML VIAL IVP ONE (15:15)
[2020-05-27] MEDS ORDERED: CISATRACURIUM BESYLATE 20 MG in DEXTROSE 5%-WATER 98 ML IV PRN (15:32)
[2020-05-27] MEDS ORDERED: PROPOFOL 1000 MG/ISO-OSM 100 ML IV ONE (15:36)
[2020-05-27 16:00] VITALS: BP 158/76
[2020-05-27] MEDS: CISATRACURIUM BESYLATE 50 MG in DEXTROSE 5%-WATER 245 ML IV PRN ×2 (16:36→23:28)
[2020-05-27] MEDS: FentaNYL CITRATE PF 500 MCG in DEXTROSE 5%-WATER 90 ML IV PRN ×2 (16:36→22:08)
[2020-05-27 16:52] LABS: ABG A-A DIFF O2 591.7 mmHg (10-20.0); ABG BASE EXCESS -1.4 mmol/L (-2.0-3.0); ABG CARBOXYHEMOGLOBIN 0.5 % (0.0-1.5); ABG METHEMOGLOBIN 0.2 % (0.0-1.5); ABG OXYGEN CONTENT 23.2 mL/dL (15.0-23.0); ABG OXYGEN SATURATION 94.6 % (95.0-98.0); ABG OXYHEMOGLOBIN 93.9 % (94.0-100.0); ABG PCO2 45 mmHg (35-45); ABG TOTAL HEMOGLOBIN 17.6 G/dL (12.0-18.0); PO2, ARTERIAL BG 77.3 mmHg (79.0-87.0); SOURCE, BLOOD GAS ARTERIAL; TEMPERATURE, FAHRENHEIT, BG 98.1 FAHREN (96.0-98.6)
[2020-05-27 16:53] LABS: O2 DEVICE,BLOOD GAS VENTILATOR (ROOM AIR); PEEP,BG 10 cm H2O; SITE, BLOOD GAS A-LINE; VT, ABG 450 ml
[2020-05-27 20:00] VITALS: BP 121/73
[2020-05-27] MEDS: PROPOFOL 1000 MG/ISO-OSM 100 ML IV PRN (21:13)
[2020-05-27] MEDS ORDERED: NOREPINEPHRINE 4 MG/D5%-WATER 250 ML IV ONE (23:42)
[2020-05-27] MEDS: NOREPINEPHRINE 4 MG/D5%-WATER 250 ML IV PRN (23:45)
[2020-05-27] MEDS ORDERED: VASOPRESSIN 40 UNITS in DEXTROSE 5%-WATER 98 ML IV PRN (23:59)
[2020-05-28] VITALS: BP 94/58
[2020-05-28] MEDS: PROPOFOL 1000 MG/ISO-OSM 100 ML IV PRN ×5 (00:40→23:09)
[2020-05-28] MEDS: ALBUMIN HUMAN 25%-25GM/100ML 100 ML IV SCH ×2 (00:46→07:47)
[2020-05-28] MEDS: INSULIN LISPRO 100 UNITS/ML SQ PRN ×4 (01:14→17:43)
[2020-05-28 02:18] LABS: GLUCOSE,POINT OF CARE 236 MG/DL (70-110)
[2020-05-28] MEDS: FentaNYL CITRATE PF 500 MCG in DEXTROSE 5%-WATER 90 ML IV PRN ×4 (02:32→18:47)
[2020-05-28] MEDS: CISATRACURIUM BESYLATE 50 MG in DEXTROSE 5%-WATER 245 ML IV PRN ×4 (03:47→18:49)
[2020-05-28 04:00] VITALS: BP 108/70
[2020-05-28 05:32] LABS: BASOPHILS % (AUTO) 0.5 % (0.0-2.0); EOSINOPHILS % (AUTO) 0.8 % (1.0-6.0); HEMOGLOBIN 14.1 g/dL (13.5-17.5); LYMPHOCYTES # (AUTO) 1.2 K/uL (1.0-4.8); LYMPHOCYTES % (AUTO) 8.7 % (22.0-44.0); MEAN CORPUSCULAR HEMOGLOBIN 30.8 pg (26.0-34.0); MEAN CORPUSCULAR HGB CONC 34.5 G/dL (31.0-37.0); MEAN CORPUSCULAR VOLUME 89 fL (80-100); MONOCYTES # (AUTO) 0.9 K/uL (0.1-1.0); MONOCYTES % (AUTO) 6.6 % (2.0-9.0); NEUTROPHILS # (AUTO) 11.7 K/uL (1.8-7.7); NEUTROPHILS % (AUTO) 83.4 % (40.0-70.0); PLATELET COUNT (AUTO) 174 K/uL (150-450); RED BLOOD CELL COUNT(AUTO) 4.59 MIL/uL (4.50-5.90); RED CELL DISTRIBUTION WIDTH 13.2 % (11.5-14.5)
[2020-05-28 06:07] LABS: ANION GAP 8 mmol/L (8-16); CARBON DIOXIDE 25 mmol/L (22-29); CHLORIDE 97 mmol/L (98-107); CREATININE 0.74 mg/dL (0.60-1.30); GLUCOSE,RANDOM 239 mg/dL (70-110); POTASSIUM 4.2 mmol/L (3.5-5.1); SODIUM SERUM 130 mmol/L (136-145); UREA NITROGEN, BLOOD 29 mg/dL (7-18)
[2020-05-28 06:08] LABS: ALANINE AMINOTRANSFERASE 93 U/L (12-78); ALBUMIN 3.3 g/dL (3.4-5.0); ALKALINE PHOSPHATASE 81 U/L (46-116); ASPARTATE AMINOTRANSFERASE 44 U/L (15-37); BILIRUBIN,TOTAL 0.9 mg/dL (0.1-1.0); C-REACTIVE PROTEIN QUANT 0.11 mg/dL (0.00-0.30); CALCIUM, TOTAL 8.3 mg/dL (8.8-10.5); FERRITIN 737 ng/mL (26-388); GLOMERULAR FILTR. RATE CALC > 60 mL/min (>60); TOTAL PROTEIN, SERUM 6.1 g/dL (6.4-8.2)
[2020-05-28 07:01] LABS: GLUCOMETER DEV NAME(LOC) 4E.2; GLUCOSE,POINT OF CARE 227 MG/DL (70-110)
[2020-05-28] MEDS: DEXAMETHASONE SOD PHOS 4 MG/ML VIAL IVP SCH (07:48)
[2020-05-28] MEDS: ENOXAPARIN SODIUM 60 MG/0.6 ML PF SYRINGE SQ SCH ×2 (07:48→21:10)
[2020-05-28] MEDS: FAMOTIDINE 20 MG TABLET PO SCH (07:48)
[2020-05-28] MEDS: ZINC SULFATE 220 MG CAPSULE PO SCH ×2 (07:48→21:10)
[2020-05-28] MEDS: DOCUSATE SODIUM 100 MG CAPSULE PO SCH ×2 (07:48→21:10)
[2020-05-28 08:00] VITALS: BP 109/64
[2020-05-28 09:55] LABS: APPEARANCE,URINE CLOUDY (CLEAR); BILIRUBIN,URINE NEGATIVE (NEGATIVE); GLUCOSE, URINE (UA) NEGATIVE (NEGATIVE); KETONES,URINE NEGATIVE (NEGATIVE); LEUKOCYTE ESTERASE ,URINE TRACE (NEGATIVE); NITRATE,URINE NEGATIVE (NEGATIVE); OCCULT BLOOD,URINE LARGE (NEGATIVE); PROTEIN,URINE TRACE (NEGATIVE)
[2020-05-28 10:17] LABS: WBC,URINE 0-2 /HPF (0-5)
[2020-05-28 10:18] LABS: AMORPHOUS SEDIMENT,UR Many /LPF (None Seen); BACTERIA,URINE None Seen /HPF (None Seen)
[2020-05-28 12:00] VITALS: BP 104/46
[2020-05-28 14:02] LABS: GLUCOSE,POINT OF CARE 191 MG/DL (70-110)
[2020-05-28 16:00] VITALS: BP 102/51
[2020-05-28 19:01] LABS: GLUCOSE,POINT OF CARE 215 MG/DL (70-110)
[2020-05-28 20:00] VITALS: BP 191/93
[2020-05-29] VITALS: BP 114/63
[2020-05-29] MEDS: INSULIN LISPRO 100 UNITS/ML SQ PRN ×4 (00:22→17:47)
[2020-05-29] MEDS: CISATRACURIUM BESYLATE 50 MG in DEXTROSE 5%-WATER 245 ML IV PRN ×4 (01:41→18:28)
[2020-05-29] MEDS: FentaNYL CITRATE PF 500 MCG in DEXTROSE 5%-WATER 90 ML IV PRN ×4 (01:42→18:29)
[2020-05-29 04:00] VITALS: BP 97/57
[2020-05-29 05:18] LABS: GLUCOSE,POINT OF CARE 151 MG/DL (70-110)
[2020-05-29 05:53] LABS: BASOPHILS % (AUTO) 0.2 % (0.0-2.0); EOSINOPHILS % (AUTO) 1.3 % (1.0-6.0); HEMATOCRIT 41.7 % (41-53); HEMOGLOBIN 13.9 g/dL (13.5-17.5); LYMPHOCYTES # (AUTO) 1.8 K/uL (1.0-4.8); LYMPHOCYTES % (AUTO) 14.4 % (22.0-44.0); MEAN CORPUSCULAR HGB CONC 33.2 G/dL (31.0-37.0); MEAN CORPUSCULAR VOLUME 90 fL (80-100); MONOCYTES # (AUTO) 0.8 K/uL (0.1-1.0); MONOCYTES % (AUTO) 6.4 % (2.0-9.0); NEUTROPHILS # (AUTO) 9.6 K/uL (1.8-7.7); NEUTROPHILS % (AUTO) 77.7 % (40.0-70.0); PLATELET COUNT (AUTO) 181 K/uL (150-450); RED BLOOD CELL COUNT(AUTO) 4.63 MIL/uL (4.50-5.90)
[2020-05-29 06:38] LABS: ALANINE AMINOTRANSFERASE 158 U/L (12-78); ALBUMIN 3.6 g/dL (3.4-5.0); ALKALINE PHOSPHATASE 77 U/L (46-116); ANION GAP 4 mmol/L (8-16); ASPARTATE AMINOTRANSFERASE 64 U/L (15-37); BILIRUBIN,TOTAL 0.8 mg/dL (0.1-1.0); CALCIUM, TOTAL 8.8 mg/dL (8.8-10.5); CARBON DIOXIDE 31 mmol/L (22-29); CHLORIDE 95 mmol/L (98-107); CREATININE 0.77 mg/dL (0.60-1.30); FERRITIN 829 ng/mL (26-388); GLOMERULAR FILTR. RATE CALC > 60 mL/min (>60); GLUCOSE,RANDOM 141 mg/dL (70-110); POTASSIUM 4.1 mmol/L (3.5-5.1); SODIUM SERUM 130 mmol/L (136-145); TOTAL PROTEIN, SERUM 6.3 g/dL (6.4-8.2); UREA NITROGEN, BLOOD 17 mg/dL (7-18)
[2020-05-29 06:39] LABS: C-REACTIVE PROTEIN QUANT < 0.05 mg/dL (0.00-0.30)
[2020-05-29] MEDS: PROPOFOL 1000 MG/ISO-OSM 100 ML IV PRN ×3 (06:53→16:26)
[2020-05-29] MEDS: DEXAMETHASONE SOD PHOS 4 MG/ML VIAL IVP SCH (07:37)
[2020-05-29] MEDS: FAMOTIDINE 20 MG TABLET PO SCH (07:37)
[2020-05-29] MEDS: DOCUSATE SODIUM 100 MG CAPSULE PO SCH ×2 (07:37→20:17)
[2020-05-29] MEDS: ENOXAPARIN SODIUM 60 MG/0.6 ML PF SYRINGE SQ SCH ×2 (07:37→20:18)
[2020-05-29] MEDS: ZINC SULFATE 220 MG CAPSULE PO SCH ×2 (07:38→20:17)
[2020-05-29 08:00] VITALS: BP 125/61
[2020-05-29 08:10] LABS: GLUCOMETER DEV NAME(LOC) 4E.2; GLUCOSE,POINT OF CARE 156 MG/DL (70-110)
[2020-05-29 09:00] LABS: ABG A-A DIFF O2 449.9 mmHg (10-20.0); ABG BASE EXCESS 2.9 mmol/L (-2.0-3.0); ABG CARBOXYHEMOGLOBIN 1.2 % (0.0-1.5); ABG HCO3 25.7 mmol/L (22.0-26.0); ABG METHEMOGLOBIN 0.3 % (0.0-1.5); ABG OXYGEN CONTENT 19.6 mL/dL (15.0-23.0); ABG OXYGEN SATURATION 92.5 % (95.0-98.0); ABG OXYHEMOGLOBIN 91.1 % (94.0-100.0); ABG PCO2 55 mmHg (35-45); ABG PH 7.336 (7.35-7.450); ABG TOTAL HEMOGLOBIN 15.3 G/dL (12.0-18.0); O2 DEVICE,BLOOD GAS VENTILATOR (ROOM AIR); PO2, ARTERIAL BG 63.6 mmHg (79.0-87.0); SITE, BLOOD GAS ARTERIAL LINE; SOURCE, BLOOD GAS ARTERIAL; TEMPERATURE, FAHRENHEIT, BG 97.9 FAHREN (96.0-98.6)
[2020-05-29 09:01] LABS: PEEP,BG 10 cm H2O; VT, ABG 450 ml
[2020-05-29] MEDS ORDERED: SODIUM CHLORIDE 0.9% 250 ML IV ONE (11:26)
[2020-05-29 12:00] VITALS: BP 159/64
[2020-05-29] MEDS: CEFEPIME HCL 2 GM in DEXTROSE 5%-WATER 50 ML IV SCH ×2 (12:09→20:17)
[2020-05-29] MEDS: CloNIDine HCL 0.1 MG TABLET PO PRN (13:08)
[2020-05-29 16:00] VITALS: BP 109/55
[2020-05-29 17:29] LABS: GLUCOSE,POINT OF CARE 212 MG/DL (70-110)
[2020-05-29 20:00] VITALS: BP 101/58
[2020-05-30] VITALS: BP 204/79
[2020-05-30] MEDS: INSULIN LISPRO 100 UNITS/ML SQ PRN ×3 (00:03→18:19)
[2020-05-30] MEDS: PROPOFOL 1000 MG/ISO-OSM 100 ML IV PRN ×5 (00:30→20:21)
[2020-05-30] MEDS: CISATRACURIUM BESYLATE 50 MG in DEXTROSE 5%-WATER 245 ML IV PRN ×4 (00:31→20:19)
[2020-05-30] MEDS: FentaNYL CITRATE PF 500 MCG in DEXTROSE 5%-WATER 90 ML IV PRN ×4 (00:31→20:22)
[2020-05-30 04:00] VITALS: BP 107/61
[2020-05-30] MEDS: CEFEPIME HCL 2 GM in DEXTROSE 5%-WATER 50 ML IV SCH ×2 (04:23→12:45)
[2020-05-30 05:33] LABS: BASOPHILS % (AUTO) 0.3 % (0.0-2.0); HEMATOCRIT 45.2 % (41-53); HEMOGLOBIN 14.9 g/dL (13.5-17.5); LYMPHOCYTES # (AUTO) 2.6 K/uL (1.0-4.8); LYMPHOCYTES % (AUTO) 16.2 % (22.0-44.0); MEAN CORPUSCULAR HEMOGLOBIN 29.7 pg (26.0-34.0); MEAN CORPUSCULAR VOLUME 90 fL (80-100); MONOCYTES # (AUTO) 1.1 K/uL (0.1-1.0); MONOCYTES % (AUTO) 7.2 % (2.0-9.0); NEUTROPHILS % (AUTO) 75.3 % (40.0-70.0); PLATELET COUNT (AUTO) 204 K/uL (150-450); RED BLOOD CELL COUNT(AUTO) 5.03 MIL/uL (4.50-5.90); RED CELL DISTRIBUTION WIDTH 13.1 % (11.5-14.5)
[2020-05-30 06:23] LABS: ALANINE AMINOTRANSFERASE 259 U/L (12-78); ALBUMIN 3.6 g/dL (3.4-5.0); ALKALINE PHOSPHATASE 87 U/L (46-116); ANION GAP 6 mmol/L (8-16); ASPARTATE AMINOTRANSFERASE 93 U/L (15-37); BILIRUBIN,TOTAL 0.8 mg/dL (0.1-1.0); CALCIUM, TOTAL 8.9 mg/dL (8.8-10.5); CARBON DIOXIDE 31 mmol/L (22-29); CHLORIDE 95 mmol/L (98-107); CREATININE 0.53 mg/dL (0.60-1.30); FERRITIN 1249 ng/mL (26-388); GLOMERULAR FILTR. RATE CALC > 60 mL/min (>60); GLUCOSE,RANDOM 164 mg/dL (70-110); SODIUM SERUM 132 mmol/L (136-145); TOTAL PROTEIN, SERUM 6.7 g/dL (6.4-8.2); UREA NITROGEN, BLOOD 16 mg/dL (7-18)
[2020-05-30 06:27] LABS: C-REACTIVE PROTEIN QUANT < 0.05 mg/dL (0.00-0.30)
[2020-05-30 06:30] LABS: GLUCOMETER DEV NAME(LOC) 4E.2; GLUCOSE,POINT OF CARE 158 MG/DL (70-110)
[2020-05-30 06:30] LABS: GLUCOMETER DEV NAME(LOC) 4E.2; GLUCOSE,POINT OF CARE 223 MG/DL (70-110)
[2020-05-30 06:30] LABS: GLUCOMETER DEV NAME(LOC) 4E.2; GLUCOSE,POINT OF CARE 159 MG/DL (70-110)
[2020-05-30 08:00] VITALS: BP 104/64
[2020-05-30] MEDS: FAMOTIDINE 20 MG TABLET PO SCH (08:57)
[2020-05-30] MEDS: ZINC SULFATE 220 MG CAPSULE PO SCH ×2 (08:57→21:32)
[2020-05-30] MEDS: CloNIDine HCL 0.1 MG TABLET PO PRN (08:57)
[2020-05-30] MEDS: ENOXAPARIN SODIUM 60 MG/0.6 ML PF SYRINGE SQ SCH ×2 (08:57→21:34)
[2020-05-30] MEDS: DOCUSATE SODIUM 100 MG CAPSULE PO SCH ×2 (08:57→21:33)
[2020-05-30] MEDS: DEXAMETHASONE SOD PHOS 4 MG/ML VIAL IVP SCH (09:05)
[2020-05-30 10:57] LABS: ABG A-A DIFF O2 434.2 mmHg (10-20.0); ABG BASE EXCESS 3.6 mmol/L (-2.0-3.0); ABG CARBOXYHEMOGLOBIN 1.3 % (0.0-1.5); ABG HCO3 26.3 mmol/L (22.0-26.0); ABG METHEMOGLOBIN 0.3 % (0.0-1.5); ABG OXYGEN CONTENT 20.7 mL/dL (15.0-23.0); ABG OXYGEN SATURATION 95.7 % (95.0-98.0); ABG OXYHEMOGLOBIN 94.2 % (94.0-100.0); ABG PCO2 56 mmHg (35-45); ABG TOTAL HEMOGLOBIN 15.6 G/dL (12.0-18.0); PO2, ARTERIAL BG 78.2 mmHg (79.0-87.0); SOURCE, BLOOD GAS ARTERIAL; TEMPERATURE, FAHRENHEIT, BG 98.2 FAHREN (96.0-98.6)
[2020-05-30 11:02] LABS: SITE, BLOOD GAS A LINE
[2020-05-30 11:03] LABS: O2 DEVICE,BLOOD GAS VENTILATOR (ROOM AIR); PEEP,BG 10 cm H2O; SPONTANEOUS VT, BG 454 ml; VT, ABG 450 ml
[2020-05-30 12:00] VITALS: BP 104/64
[2020-05-30 14:25] LABS: GLUCOSE,POINT OF CARE 233 MG/DL (70-110)
[2020-05-30 16:00] VITALS: BP 104/64
[2020-05-30 18:47] LABS: GLUCOMETER DEV NAME(LOC) 4E.2; GLUCOSE,POINT OF CARE 326 MG/DL (70-110)
[2020-05-30 20:00] VITALS: BP 102/62
[2020-05-30] MEDS: CefTRIAXone 1 GM/DEXTROSE 50 ML IV SCH (21:33)
[2020-05-31] VITALS (7 sets, daily range): BP systolic 95–177; BP diastolic 55–80
[2020-05-31] MEDS: INSULIN LISPRO 100 UNITS/ML SQ PRN ×4 (00:28→23:52)
[2020-05-31] MEDS: CISATRACURIUM BESYLATE 50 MG in DEXTROSE 5%-WATER 245 ML IV PRN ×7 (00:33→23:51)
[2020-05-31] MEDS: PROPOFOL 1000 MG/ISO-OSM 100 ML IV PRN ×5 (03:15→20:22)
[2020-05-31] MEDS: FentaNYL CITRATE PF 500 MCG in DEXTROSE 5%-WATER 90 ML IV PRN ×4 (03:44→23:51)
[2020-05-31 07:53] LABS: BASOPHILS % (AUTO) 0.4 % (0.0-2.0); EOSINOPHILS % (AUTO) 0.9 % (1.0-6.0); HEMATOCRIT 41.6 % (41-53); LYMPHOCYTES # (AUTO) 1.3 K/uL (1.0-4.8); LYMPHOCYTES % (AUTO) 7.9 % (22.0-44.0); MEAN CORPUSCULAR HEMOGLOBIN 30.3 pg (26.0-34.0); MEAN CORPUSCULAR HGB CONC 33.7 G/dL (31.0-37.0); MEAN CORPUSCULAR VOLUME 90 fL (80-100); MONOCYTES # (AUTO) 0.7 K/uL (0.1-1.0); MONOCYTES % (AUTO) 4.3 % (2.0-9.0); NEUTROPHILS # (AUTO) 14.6 K/uL (1.8-7.7); PLATELET COUNT (AUTO) 194 K/uL (150-450); RED BLOOD CELL COUNT(AUTO) 4.64 MIL/uL (4.50-5.90); RED CELL DISTRIBUTION WIDTH 12.6 % (11.5-14.5)
[2020-05-31 08:06] LABS: NEUTROPHILS % (AUTO) 86.5 % (40.0-70.0)
[2020-05-31] MEDS: ENOXAPARIN SODIUM 60 MG/0.6 ML PF SYRINGE SQ SCH ×2 (08:15→20:21)
[2020-05-31] MEDS: FAMOTIDINE 20 MG TABLET PO SCH (08:16)
[2020-05-31] MEDS: DOCUSATE SODIUM 100 MG CAPSULE PO SCH ×2 (08:16→20:21)
[2020-05-31] MEDS: ZINC SULFATE 220 MG CAPSULE PO SCH ×2 (08:17→20:21)
[2020-05-31] MEDS: DEXAMETHASONE SOD PHOS 4 MG/ML VIAL IVP SCH (08:18)
[2020-05-31 08:24] LABS: ALANINE AMINOTRANSFERASE 262 U/L (12-78); ALBUMIN 3.3 g/dL (3.4-5.0); ALKALINE PHOSPHATASE 92 U/L (46-116); ANION GAP 5 mmol/L (8-16); ASPARTATE AMINOTRANSFERASE 53 U/L (15-37); BILIRUBIN,TOTAL 0.6 mg/dL (0.1-1.0); C-REACTIVE PROTEIN QUANT 0.25 mg/dL (0.00-0.30); CARBON DIOXIDE 32 mmol/L (22-29); CHLORIDE 93 mmol/L (98-107); CREATININE 0.58 mg/dL (0.60-1.30); FERRITIN 871 ng/mL (26-388); GLOMERULAR FILTR. RATE CALC > 60 mL/min (>60); GLUCOSE,RANDOM 169 mg/dL (70-110); POTASSIUM 4.4 mmol/L (3.5-5.1); SODIUM SERUM 130 mmol/L (136-145); TOTAL PROTEIN, SERUM 6.3 g/dL (6.4-8.2); UREA NITROGEN, BLOOD 15 mg/dL (7-18)
[2020-05-31 17:28] LABS: GLUCOSE,POINT OF CARE 216 MG/DL (70-110)
[2020-05-31] MEDS: CefTRIAXone 1 GM/DEXTROSE 50 ML IV SCH (20:21)
[2020-05-31] MEDS: CloNIDine HCL 0.1 MG TABLET PO PRN (20:23)
[2020-05-31 20:25] LABS: GLUCOMETER DEV NAME(LOC) 4E.2; GLUCOSE,POINT OF CARE 239 MG/DL (70-110)
[2020-05-31 20:25] LABS: GLUCOMETER DEV NAME(LOC) 4E.2; GLUCOSE,POINT OF CARE 178 MG/DL (70-110)
[2020-05-31 20:26] LABS: GLUCOMETER DEV NAME(LOC) 4E.2; GLUCOSE,POINT OF CARE 302 MG/DL (70-110)
[2020-06-01] VITALS: BP 99/56
[2020-06-01 00:46] LABS: GLUCOSE,POINT OF CARE 282 MG/DL (70-110)
[2020-06-01] MEDS ORDERED: SODIUM CHLORIDE 0.9% 250 ML IV ONE (01:29)
[2020-06-01] MEDS: PROPOFOL 1000 MG/ISO-OSM 100 ML IV PRN ×6 (01:36→19:25)
[2020-06-01 04:00] VITALS: BP 195/75
[2020-06-01] MEDS: CloNIDine HCL 0.1 MG TABLET PO PRN ×2 (04:12→12:38)
[2020-06-01] MEDS: CISATRACURIUM BESYLATE 50 MG in DEXTROSE 5%-WATER 245 ML IV PRN ×6 (04:12→22:30)
[2020-06-01] MEDS ORDERED: SODIUM CHLORIDE 0.9% 500 ML IV ONE (04:14)
[2020-06-01] MEDS: FentaNYL CITRATE PF 500 MCG in DEXTROSE 5%-WATER 90 ML IV PRN ×5 (05:22→22:36)
[2020-06-01] MEDS: INSULIN LISPRO 100 UNITS/ML SQ PRN ×4 (05:23→23:15)
[2020-06-01 05:32] LABS: BASOPHILS % (AUTO) 0.5 % (0.0-2.0); EOSINOPHILS % (AUTO) 0.5 % (1.0-6.0); HEMOGLOBIN 14.3 g/dL (13.5-17.5); LYMPHOCYTES # (AUTO) 1.2 K/uL (1.0-4.8); LYMPHOCYTES % (AUTO) 6.9 % (22.0-44.0); MEAN CORPUSCULAR HEMOGLOBIN 30.4 pg (26.0-34.0); MEAN CORPUSCULAR VOLUME 89 fL (80-100); MONOCYTES # (AUTO) 0.9 K/uL (0.1-1.0); MONOCYTES % (AUTO) 4.9 % (2.0-9.0); PLATELET COUNT (AUTO) 198 K/uL (150-450); RED BLOOD CELL COUNT(AUTO) 4.71 MIL/uL (4.50-5.90); RED CELL DISTRIBUTION WIDTH 12.8 % (11.5-14.5)
[2020-06-01 05:42] LABS: NEUTROPHILS % (AUTO) 87.2 % (40.0-70.0)
[2020-06-01 06:24] LABS: ALANINE AMINOTRANSFERASE 257 U/L (12-78); ALBUMIN 3.2 g/dL (3.4-5.0); ALKALINE PHOSPHATASE 92 U/L (46-116); ANION GAP 4 mmol/L (8-16); ASPARTATE AMINOTRANSFERASE 56 U/L (15-37); BILIRUBIN,TOTAL 0.6 mg/dL (0.1-1.0); C-REACTIVE PROTEIN QUANT 0.23 mg/dL (0.00-0.30); CALCIUM, TOTAL 8.6 mg/dL (8.8-10.5); CARBON DIOXIDE 34 mmol/L (22-29); CHLORIDE 91 mmol/L (98-107); CREATININE 0.61 mg/dL (0.60-1.30); FERRITIN 816 ng/mL (26-388); GLOMERULAR FILTR. RATE CALC > 60 mL/min (>60); GLUCOSE,RANDOM 195 mg/dL (70-110); POTASSIUM 4.5 mmol/L (3.5-5.1); SODIUM SERUM 129 mmol/L (136-145); TOTAL PROTEIN, SERUM 6.3 g/dL (6.4-8.2); UREA NITROGEN, BLOOD 17 mg/dL (7-18)
[2020-06-01] MEDS: DOCUSATE SODIUM 100 MG CAPSULE PO SCH ×2 (07:55→20:22)
[2020-06-01] MEDS: DEXAMETHASONE SOD PHOS 4 MG/ML VIAL IVP SCH (07:55)
[2020-06-01] MEDS: FAMOTIDINE 20 MG TABLET PO SCH (07:56)
[2020-06-01] MEDS: ENOXAPARIN SODIUM 60 MG/0.6 ML PF SYRINGE SQ SCH ×2 (07:56→20:24)
[2020-06-01] MEDS: ZINC SULFATE 220 MG CAPSULE PO SCH ×2 (07:56→20:22)
[2020-06-01 08:00] VITALS: BP 96/57
[2020-06-01 09:06] LABS: GLUCOMETER DEV NAME(LOC) 4E.2; GLUCOSE,POINT OF CARE 179 MG/DL (70-110)
[2020-06-01 12:00] VITALS: BP 151/69
[2020-06-01] MEDS ORDERED: METOPROLOL TARTRATE 25 MG TABLET PO ONE (13:00)
[2020-06-01 13:10] LABS: GLUCOSE,POINT OF CARE 235 MG/DL (70-110)
[2020-06-01 13:45] LABS: ABG A-A DIFF O2 381.5 mmHg (10-20.0); ABG BASE EXCESS 8.5 mmol/L (-2.0-3.0); ABG CARBOXYHEMOGLOBIN 1.4 % (0.0-1.5); ABG HCO3 30.4 mmol/L (22.0-26.0); ABG METHEMOGLOBIN 0.3 % (0.0-1.5); ABG OXYGEN CONTENT 18.2 mL/dL (15.0-23.0); ABG OXYGEN SATURATION 89.9 % (95.0-98.0); ABG OXYHEMOGLOBIN 88.4 % (94.0-100.0); ABG PCO2 55 mmHg (35-45); ABG PH 7.401 (7.35-7.450); ABG TOTAL HEMOGLOBIN 14.7 G/dL (12.0-18.0); PO2, ARTERIAL BG 58.7 mmHg (79.0-87.0); SOURCE, BLOOD GAS ARTERIAL; TEMPERATURE, FAHRENHEIT, BG 98.6 FAHREN (96.0-98.6)
[2020-06-01 13:46] LABS: SITE, BLOOD GAS ART-LINE
[2020-06-01 13:47] LABS: O2 DEVICE,BLOOD GAS VENTILATOR (ROOM AIR); PEEP,BG 8 cm H2O; VT, ABG 450 ml
[2020-06-01 18:00] VITALS: BP 110/74
[2020-06-01 20:00] VITALS: BP 117/61
[2020-06-01] MEDS: METOPROLOL TARTRATE 25 MG TABLET PO SCH (20:22)
[2020-06-01] MEDS: CefTRIAXone 1 GM/DEXTROSE 50 ML IV SCH (20:22)
[2020-06-02] VITALS: BP 111/60
[2020-06-02] MEDS: PROPOFOL 1000 MG/ISO-OSM 100 ML IV PRN ×6 (00:37→20:28)
[2020-06-02 02:21] LABS: GLUCOSE,POINT OF CARE 192 MG/DL (70-110)
[2020-06-02] MEDS: FentaNYL CITRATE PF 500 MCG in DEXTROSE 5%-WATER 90 ML IV PRN ×2 (02:54→06:44)
[2020-06-02] MEDS: CISATRACURIUM BESYLATE 50 MG in DEXTROSE 5%-WATER 245 ML IV PRN ×2 (02:55→06:44)
[2020-06-02 04:00] VITALS: BP 120/61
[2020-06-02] MEDS: INSULIN LISPRO 100 UNITS/ML SQ PRN ×3 (05:16→17:40)
[2020-06-02 05:59] LABS: GLUCOMETER DEV NAME(LOC) 4E.2; GLUCOSE,POINT OF CARE 173 MG/DL (70-110)
[2020-06-02 06:22] LABS: HEMATOCRIT 41.2 % (41-53); MEAN CORPUSCULAR HEMOGLOBIN 30.7 pg (26.0-34.0); MEAN CORPUSCULAR VOLUME 90 fL (80-100); PLATELET COUNT (AUTO) 209 K/uL (150-450); RED BLOOD CELL COUNT(AUTO) 4.56 MIL/uL (4.50-5.90); RED CELL DISTRIBUTION WIDTH 13.5 % (11.5-14.5)
[2020-06-02 06:49] LABS: ALANINE AMINOTRANSFERASE 232 U/L (12-78); ALBUMIN 3.1 g/dL (3.4-5.0); ALKALINE PHOSPHATASE 90 U/L (46-116); ANION GAP 0 mmol/L (8-16); ASPARTATE AMINOTRANSFERASE 41 U/L (15-37); BILIRUBIN,TOTAL 0.5 mg/dL (0.1-1.0); C-REACTIVE PROTEIN QUANT 0.14 mg/dL (0.00-0.30); CARBON DIOXIDE 37 mmol/L (22-29); CHLORIDE 91 mmol/L (98-107); CREATININE 0.54 mg/dL (0.60-1.30); FERRITIN 821 ng/mL (26-388); GLOMERULAR FILTR. RATE CALC > 60 mL/min (>60); GLUCOSE,RANDOM 177 mg/dL (70-110); POTASSIUM 4.9 mmol/L (3.5-5.1); SODIUM SERUM 128 mmol/L (136-145); TOTAL PROTEIN, SERUM 6.5 g/dL (6.4-8.2); UREA NITROGEN, BLOOD 16 mg/dL (7-18)
[2020-06-02 06:59] LABS: GLUCOSE,POINT OF CARE 265 MG/DL (70-110)
[2020-06-02 08:00] VITALS: BP 129/65
[2020-06-02] MEDS: ENOXAPARIN SODIUM 60 MG/0.6 ML PF SYRINGE SQ SCH ×2 (08:54→20:00)
[2020-06-02] MEDS: FAMOTIDINE 20 MG TABLET PO SCH (08:55)
[2020-06-02] MEDS: DOCUSATE SODIUM 100 MG CAPSULE PO SCH ×2 (08:55→20:00)
[2020-06-02] MEDS: ZINC SULFATE 220 MG CAPSULE PO SCH ×2 (08:55→20:00)
[2020-06-02] MEDS: DEXAMETHASONE SOD PHOS 4 MG/ML VIAL IVP SCH (08:56)
[2020-06-02] MEDS: METOPROLOL TARTRATE 25 MG TABLET PO SCH ×2 (08:56→20:00)
[2020-06-02] MEDS ORDERED: VASOPRESSIN 40 UNITS in SODIUM CHLORIDE 0.9% 98 ML IV PRN (11:59)
[2020-06-02 12:00] VITALS: BP 121/59
[2020-06-02 12:27] LABS: BAND NEUTROPHILS % (MANUAL) 8 % (0-5); LYMPHOCYTES % (MANUAL) 8 % (22-44); METAMYELOCYTES % 1 % (0-0); MONOCYTES % (MANUAL) 3 % (2-9); MYELOCYTES % 1 % (0-0); SEGMENTED NEUTROPHILS % 79 % (40-70)
[2020-06-02] MEDS: FentaNYL CITRATE PF 500 MCG in SODIUM CHLORIDE 0.9% 90 ML IV PRN ×3 (13:30→20:28)
[2020-06-02] MEDS: CISATRACURIUM BESYLATE 50 MG in SODIUM CHLORIDE 0.9% 245 ML IV PRN ×3 (13:32→20:29)
[2020-06-02 14:18] LABS: GLUCOMETER DEV NAME(LOC) 4E.2; GLUCOSE,POINT OF CARE 209 MG/DL (70-110)
[2020-06-02 16:00] VITALS: BP 160/70
[2020-06-02] MEDS: CloNIDine HCL 0.1 MG TABLET PO PRN (16:22)
[2020-06-02 18:03] LABS: GLUCOSE,POINT OF CARE 242 MG/DL (70-110)
[2020-06-02] MEDS ORDERED: SODIUM CHLORIDE 0.9% 1,000 ML ONE (19:33)
[2020-06-02 20:00] VITALS: BP 95/59
[2020-06-02] MEDS: CefTRIAXone 1 GM/DEXTROSE 50 ML IV SCH (20:00)
[2020-06-03] VITALS (12 sets, daily range): BP systolic 101–197; BP diastolic 52–77
[2020-06-03] MEDS: FentaNYL CITRATE PF 500 MCG in SODIUM CHLORIDE 0.9% 90 ML IV PRN ×7 (00:12→22:21)
[2020-06-03] MEDS: PROPOFOL 1000 MG/ISO-OSM 100 ML IV PRN ×5 (00:13→18:22)
[2020-06-03] MEDS: CISATRACURIUM BESYLATE 50 MG in SODIUM CHLORIDE 0.9% 245 ML IV PRN ×5 (01:58→15:36)
[2020-06-03 02:28] LABS: GLUCOMETER DEV NAME(LOC) 4E.2; GLUCOSE,POINT OF CARE 135 MG/DL (70-110)
[2020-06-03] MEDS: CloNIDine HCL 0.1 MG TABLET PO PRN (05:06)
[2020-06-03 05:45] LABS: BASOPHILS % (AUTO) 0.5 % (0.0-2.0); EOSINOPHILS % (AUTO) 0.9 % (1.0-6.0); HEMATOCRIT 41.4 % (41-53); HEMOGLOBIN 13.8 g/dL (13.5-17.5); LYMPHOCYTES # (AUTO) 2.5 K/uL (1.0-4.8); LYMPHOCYTES % (AUTO) 15.9 % (22.0-44.0); MEAN CORPUSCULAR HEMOGLOBIN 30.3 pg (26.0-34.0); MEAN CORPUSCULAR HGB CONC 33.3 G/dL (31.0-37.0); MEAN CORPUSCULAR VOLUME 91 fL (80-100); MONOCYTES # (AUTO) 1.2 K/uL (0.1-1.0); MONOCYTES % (AUTO) 7.6 % (2.0-9.0); NEUTROPHILS % (AUTO) 75.1 % (40.0-70.0); PLATELET COUNT (AUTO) 223 K/uL (150-450); RED BLOOD CELL COUNT(AUTO) 4.54 MIL/uL (4.50-5.90); RED CELL DISTRIBUTION WIDTH 13.3 % (11.5-14.5)
[2020-06-03 06:14] LABS: ALANINE AMINOTRANSFERASE 239 U/L (12-78); ALKALINE PHOSPHATASE 89 U/L (46-116); ANION GAP 1 mmol/L (8-16); ASPARTATE AMINOTRANSFERASE 67 U/L (15-37); BILIRUBIN,TOTAL 0.7 mg/dL (0.1-1.0); CALCIUM, TOTAL 8.7 mg/dL (8.8-10.5); CARBON DIOXIDE 37 mmol/L (22-29); CHLORIDE 97 mmol/L (98-107); CREATININE 0.41 mg/dL (0.60-1.30); GLOMERULAR FILTR. RATE CALC > 60 mL/min (>60); GLUCOSE,RANDOM 152 mg/dL (70-110); POTASSIUM 4.9 mmol/L (3.5-5.1); SODIUM SERUM 135 mmol/L (136-145); TOTAL PROTEIN, SERUM 6.4 g/dL (6.4-8.2); UREA NITROGEN, BLOOD 22 mg/dL (7-18)
[2020-06-03 06:22] LABS: FERRITIN 832 ng/mL (26-388)
[2020-06-03] MEDS: ENOXAPARIN SODIUM 60 MG/0.6 ML PF SYRINGE SQ SCH ×2 (08:00→20:41)
[2020-06-03] MEDS: FAMOTIDINE 20 MG TABLET PO SCH (08:01)
[2020-06-03] MEDS: DOCUSATE SODIUM 100 MG CAPSULE PO SCH ×2 (08:01→20:41)
[2020-06-03] MEDS: METOPROLOL TARTRATE 25 MG TABLET PO SCH ×2 (08:01→20:57)
[2020-06-03] MEDS: DEXAMETHASONE SOD PHOS 4 MG/ML VIAL IVP SCH (08:01)
[2020-06-03] MEDS: ZINC SULFATE 220 MG CAPSULE PO SCH ×2 (08:01→20:41)
[2020-06-03] MEDS: INSULIN LISPRO 100 UNITS/ML SQ PRN ×2 (12:01→16:48)
[2020-06-03 17:37] LABS: GLUCOSE,POINT OF CARE 201 MG/DL (70-110)
[2020-06-03] MEDS: CefTRIAXone 1 GM/DEXTROSE 50 ML IV SCH (20:40)
[2020-06-03 20:45] LABS: GLUCOSE,POINT OF CARE 170 MG/DL (70-110)
[2020-06-04] VITALS: BP 104/50
[2020-06-04] MEDS: PROPOFOL 1000 MG/ISO-OSM 100 ML IV PRN ×3 (00:14→09:19)
[2020-06-04] MEDS: FentaNYL CITRATE PF 500 MCG in SODIUM CHLORIDE 0.9% 90 ML IV PRN ×4 (01:38→11:58)
[2020-06-04 04:00] VITALS: BP 116/55
[2020-06-04 05:00] LABS: GLUCOMETER DEV NAME(LOC) 4E.2; GLUCOSE,POINT OF CARE 140 MG/DL (70-110)
[2020-06-04 05:35] LABS: GLUCOSE,POINT OF CARE 119 MG/DL (70-110)
[2020-06-04] MEDS: INSULIN LISPRO 100 UNITS/ML SQ PRN ×2 (05:56→15:13)
[2020-06-04 06:17] LABS: BASOPHILS % (AUTO) 0.3 % (0.0-2.0); EOSINOPHILS % (AUTO) 1.1 % (1.0-6.0); HEMATOCRIT 37.3 % (41-53); HEMOGLOBIN 12.6 g/dL (13.5-17.5); LYMPHOCYTES % (AUTO) 15.5 % (22.0-44.0); MEAN CORPUSCULAR HEMOGLOBIN 30.8 pg (26.0-34.0); MEAN CORPUSCULAR HGB CONC 33.9 G/dL (31.0-37.0); MEAN CORPUSCULAR VOLUME 91 fL (80-100); MONOCYTES # (AUTO) 0.9 K/uL (0.1-1.0); MONOCYTES % (AUTO) 7.2 % (2.0-9.0); NEUTROPHILS # (AUTO) 9.6 K/uL (1.8-7.7); NEUTROPHILS % (AUTO) 75.9 % (40.0-70.0); PLATELET COUNT (AUTO) 202 K/uL (150-450); RED CELL DISTRIBUTION WIDTH 12.9 % (11.5-14.5)
[2020-06-04 06:23] LABS: ALANINE AMINOTRANSFERASE 213 U/L (12-78); ALBUMIN 2.8 g/dL (3.4-5.0); ALKALINE PHOSPHATASE 86 U/L (46-116); ANION GAP 1 mmol/L (8-16); ASPARTATE AMINOTRANSFERASE 55 U/L (15-37); BILIRUBIN,TOTAL 0.5 mg/dL (0.1-1.0); C-REACTIVE PROTEIN QUANT 0.25 mg/dL (0.00-0.30); CALCIUM, TOTAL 8.6 mg/dL (8.8-10.5); CARBON DIOXIDE 39 mmol/L (22-29); CHLORIDE 97 mmol/L (98-107); CREATININE 0.54 mg/dL (0.60-1.30); FERRITIN 722 ng/mL (26-388); GLOMERULAR FILTR. RATE CALC > 60 mL/min (>60); GLUCOSE,RANDOM 143 mg/dL (70-110); LACTATE DEHYDROGENASE 221 U/L (85-227); POTASSIUM 4.8 mmol/L (3.5-5.1); SODIUM SERUM 137 mmol/L (136-145); TOTAL PROTEIN, SERUM 5.8 g/dL (6.4-8.2); UREA NITROGEN, BLOOD 21 mg/dL (7-18)
[2020-06-04] MEDS: CISATRACURIUM BESYLATE 50 MG in SODIUM CHLORIDE 0.9% 245 ML IV PRN ×2 (07:09→15:09)
[2020-06-04 08:00] VITALS: BP 217/81
[2020-06-04] MEDS: MIDAZOLAM HCL 100 MG in DEXTROSE 5%-WATER 180 ML IV PRN (08:39)
[2020-06-04] MEDS: ZINC SULFATE 220 MG CAPSULE PO SCH ×2 (09:19→22:26)
[2020-06-04] MEDS: METOPROLOL TARTRATE 25 MG TABLET PO SCH ×2 (09:19→21:00)
[2020-06-04] MEDS: DOCUSATE SODIUM 100 MG CAPSULE PO SCH ×2 (09:19→22:04)
[2020-06-04] MEDS: FAMOTIDINE 20 MG TABLET PO SCH (09:19)
[2020-06-04] MEDS: DEXAMETHASONE SOD PHOS 4 MG/ML VIAL IVP SCH (09:20)
[2020-06-04] MEDS: ENOXAPARIN SODIUM 60 MG/0.6 ML PF SYRINGE SQ SCH ×2 (09:23→22:26)
[2020-06-04 10:00] LABS: GLUCOSE,POINT OF CARE 141 MG/DL (70-110)
[2020-06-04 11:09] LABS: ABG A-A DIFF O2 338.3 mmHg (10-20.0); ABG BASE EXCESS 8.5 mmol/L (-2.0-3.0); ABG CARBOXYHEMOGLOBIN 1.2 % (0.0-1.5); ABG HCO3 29.9 mmol/L (22.0-26.0); ABG METHEMOGLOBIN 0.2 % (0.0-1.5); ABG OXYGEN SATURATION 86.2 % (95.0-98.0); ABG PCO2 66 mmHg (35-45); ABG PH 7.332 (7.35-7.450); ABG TOTAL HEMOGLOBIN 13.4 G/dL (12.0-18.0); PO2, ARTERIAL BG 53.3 mmHg (79.0-87.0); SOURCE, BLOOD GAS ARTERIAL; TEMPERATURE, FAHRENHEIT, BG 98.3 FAHREN (96.0-98.6)
[2020-06-04 11:11] LABS: O2 DEVICE,BLOOD GAS VENTILATOR (ROOM AIR); PEEP,BG 5 cm H2O; SITE, BLOOD GAS ARTERIAL LINE; VT, ABG 450 ml
[2020-06-04 12:00] VITALS: BP 146/63
[2020-06-04 15:06] LABS: GLUCOMETER DEV NAME(LOC) 4E.2; GLUCOSE,POINT OF CARE 232 MG/DL (70-110)
[2020-06-04 16:00] VITALS: BP 133/58
[2020-06-04 19:12] LABS: ABG BASE EXCESS 7.5 mmol/L (-2.0-3.0); ABG CARBOXYHEMOGLOBIN 1.8 % (0.0-1.5); ABG HCO3 28.5 mmol/L (22.0-26.0); ABG METHEMOGLOBIN 0.3 % (0.0-1.5); ABG OXYGEN CONTENT 17.9 mL/dL (15.0-23.0); ABG OXYGEN SATURATION 93.9 % (95.0-98.0); ABG OXYHEMOGLOBIN 91.9 % (94.0-100.0); ABG PH 7.246 (7.35-7.450); ABG TOTAL HEMOGLOBIN 13.8 G/dL (12.0-18.0); PO2, ARTERIAL BG 75.1 mmHg (79.0-87.0); SOURCE, BLOOD GAS ARTERIAL; TEMPERATURE, FAHRENHEIT, BG 97.7 FAHREN (96.0-98.6)
[2020-06-04 19:13] LABS: ABG PCO2 82 mmHg (35-45); O2 DEVICE,BLOOD GAS VENTILATOR (ROOM AIR); SITE, BLOOD GAS ARTERIAL LINE; VENT MODE, BG Press. Control Vent (ROOM AIR)
[2020-06-04 19:14] LABS: PEEP,BG 0 cm H2O
[2020-06-04 20:00] VITALS: BP 104/60
[2020-06-04] MEDS: CefTRIAXone 1 GM/DEXTROSE 50 ML IV SCH (22:25)
[2020-06-05] VITALS: BP 116/56
[2020-06-05 01:57] LABS: GLUCOSE,POINT OF CARE 119 MG/DL (70-110)
[2020-06-05 04:00] VITALS: BP 126/58
[2020-06-05 07:20] LABS: ALANINE AMINOTRANSFERASE 179 U/L (12-78); ALBUMIN 2.4 g/dL (3.4-5.0); ALKALINE PHOSPHATASE 79 U/L (46-116); ANION GAP 5 mmol/L (8-16); ASPARTATE AMINOTRANSFERASE 48 U/L (15-37); BILIRUBIN,TOTAL 0.5 mg/dL (0.1-1.0); CALCIUM, TOTAL 8.5 mg/dL (8.8-10.5); CARBON DIOXIDE 34 mmol/L (22-29); CHLORIDE 98 mmol/L (98-107); CREATININE 0.37 mg/dL (0.60-1.30); FERRITIN 685 ng/mL (26-388); GLOMERULAR FILTR. RATE CALC > 60 mL/min (>60); GLUCOSE,RANDOM 120 mg/dL (70-110); POTASSIUM 3.9 mmol/L (3.5-5.1); SODIUM SERUM 137 mmol/L (136-145); TOTAL PROTEIN, SERUM 5.3 g/dL (6.4-8.2); UREA NITROGEN, BLOOD 16 mg/dL (7-18)
[2020-06-05] MEDS: METOPROLOL TARTRATE 25 MG TABLET PO SCH ×2 (07:57→20:50)
[2020-06-05] MEDS: ZINC SULFATE 220 MG CAPSULE PO SCH ×2 (07:57→20:50)
[2020-06-05] MEDS: FAMOTIDINE 20 MG TABLET PO SCH (07:57)
[2020-06-05] MEDS: DEXAMETHASONE SOD PHOS 4 MG/ML VIAL IVP SCH (07:57)
[2020-06-05] MEDS: DOCUSATE SODIUM 100 MG CAPSULE PO SCH ×2 (07:57→20:50)
[2020-06-05] MEDS: ENOXAPARIN SODIUM 60 MG/0.6 ML PF SYRINGE SQ SCH ×2 (07:58→20:50)
[2020-06-05 08:00] VITALS: BP 141/58
[2020-06-05 08:09] LABS: ABG A-A DIFF O2 444.3 mmHg (10-20.0); ABG BASE EXCESS 9.6 mmol/L (-2.0-3.0); ABG CARBOXYHEMOGLOBIN 1.6 % (0.0-1.5); ABG HCO3 31.8 mmol/L (22.0-26.0); ABG METHEMOGLOBIN 0.3 % (0.0-1.5); ABG OXYGEN CONTENT 16.4 mL/dL (15.0-23.0); ABG OXYGEN SATURATION 94.4 % (95.0-98.0); ABG OXYHEMOGLOBIN 92.6 % (94.0-100.0); ABG PCO2 53 mmHg (35-45); ABG PH 7.425 (7.35-7.450); ABG TOTAL HEMOGLOBIN 12.6 G/dL (12.0-18.0); PO2, ARTERIAL BG 70.5 mmHg (79.0-87.0); SOURCE, BLOOD GAS ARTERIAL; TEMPERATURE, FAHRENHEIT, BG 98.6 FAHREN (96.0-98.6)
[2020-06-05 08:11] LABS: O2 DEVICE,BLOOD GAS VENTILATOR (ROOM AIR); SITE, BLOOD GAS ARTERIAL LINE; VENT MODE, BG PC (ROOM AIR)
[2020-06-05 08:12] LABS: PEEP,BG 0 cm H2O
[2020-06-05] MEDS: CISATRACURIUM BESYLATE 50 MG in SODIUM CHLORIDE 0.9% 245 ML IV PRN ×2 (11:48→16:55)
[2020-06-05] MEDS: FentaNYL CITRATE PF 500 MCG in SODIUM CHLORIDE 0.9% 90 ML IV PRN ×3 (11:50→22:43)
[2020-06-05 12:00] VITALS: BP 145/62
[2020-06-05] MEDS: PROPOFOL 1000 MG/ISO-OSM 100 ML IV PRN ×2 (12:04→16:55)
[2020-06-05 12:16] LABS: GLUCOMETER DEV NAME(LOC) 4E.2; GLUCOSE,POINT OF CARE 128 MG/DL (70-110)
[2020-06-05 12:18] LABS: ABG A-A DIFF O2 596.9 mmHg (10-20.0); ABG BASE EXCESS 9.4 mmol/L (-2.0-3.0); ABG CARBOXYHEMOGLOBIN 2.1 % (0.0-1.5); ABG METHEMOGLOBIN 0.3 % (0.0-1.5); ABG OXYGEN CONTENT 15.9 mL/dL (15.0-23.0); ABG OXYGEN SATURATION 87.3 % (95.0-98.0); ABG OXYHEMOGLOBIN 85.2 % (94.0-100.0); ABG PCO2 61 mmHg (35-45); ABG PH 7.373 (7.35-7.450); ABG TOTAL HEMOGLOBIN 13.3 G/dL (12.0-18.0); PO2, ARTERIAL BG 55.2 mmHg (79.0-87.0); SOURCE, BLOOD GAS ARTERIAL; TEMPERATURE, FAHRENHEIT, BG 98.6 FAHREN (96.0-98.6)
[2020-06-05 13:53] LABS: O2 DEVICE,BLOOD GAS VENTILATOR (ROOM AIR); PEEP,BG 0 cm H2O; SITE, BLOOD GAS ALINE; VENT MODE, BG PC (ROOM AIR)
[2020-06-05] MEDS ORDERED: SODIUM CHLORIDE 0.9% 100 ML ONE (14:19)
[2020-06-05] MEDS ORDERED: SODIUM CHLORIDE 0.9% 1,000 ML ONE (14:19)
[2020-06-05 16:00] VITALS: BP 118/60
[2020-06-05 17:42] LABS: GLUCOSE,POINT OF CARE 116 MG/DL (70-110)
[2020-06-05 18:00] LABS: ABG A-A DIFF O2 411.1 mmHg (10-20.0); ABG BASE EXCESS 6.2 mmol/L (-2.0-3.0); ABG CARBOXYHEMOGLOBIN 1.5 % (0.0-1.5); ABG HCO3 28.3 mmol/L (22.0-26.0); ABG METHEMOGLOBIN 0.3 % (0.0-1.5); ABG OXYGEN CONTENT 15.8 mL/dL (15.0-23.0); ABG OXYGEN SATURATION 90.4 % (95.0-98.0); ABG OXYHEMOGLOBIN 88.8 % (94.0-100.0); ABG PCO2 61 mmHg (35-45); ABG PH 7.334 (7.35-7.450); ABG TOTAL HEMOGLOBIN 12.6 G/dL (12.0-18.0); SOURCE, BLOOD GAS ARTERIAL; TEMPERATURE, FAHRENHEIT, BG 97.2 FAHREN (96.0-98.6)
[2020-06-05 18:01] LABS: O2 DEVICE,BLOOD GAS VENTILATOR (ROOM AIR); PEEP,BG 5 cm H2O; SITE, BLOOD GAS ARTERIAL LINE; VENT MODE, BG PC (ROOM AIR)
[2020-06-05] MEDS: INSULIN LISPRO 100 UNITS/ML SQ PRN (18:01)
[2020-06-05 18:36] LABS: APPEARANCE,URINE CLEAR (CLEAR); BILIRUBIN,URINE NEGATIVE (NEGATIVE); GLUCOSE, URINE (UA) 100 mg/dL (NEGATIVE); KETONES,URINE TRACE mg/dL (NEGATIVE); LEUKOCYTE ESTERASE ,URINE NEGATIVE (NEGATIVE); NITRATE,URINE NEGATIVE (NEGATIVE); OCCULT BLOOD,URINE NEGATIVE (NEGATIVE); PH,URINE 5.5 (5.0-8.0); PROTEIN,URINE NEGATIVE (NEGATIVE)
[2020-06-05 19:32] LABS: BACTERIA,URINE None Seen /HPF (None Seen); RBC,URINE None Seen /HPF (0-2); SQUAMOUS EPITHELIAL CELL,UR Few /LPF (None Seen); WBC,URINE 0-2 /HPF (0-5)
[2020-06-05 19:37] LABS: GLUCOSE,POINT OF CARE 177 MG/DL (70-110)
[2020-06-05 20:00] VITALS: BP 148/61
[2020-06-05] MEDS: CefTRIAXone 1 GM/DEXTROSE 50 ML IV SCH (21:45)
[2020-06-06] VITALS: BP 100/51
[2020-06-06] MEDS: CISATRACURIUM BESYLATE 50 MG in SODIUM CHLORIDE 0.9% 245 ML IV PRN ×3 (00:11→15:37)
[2020-06-06] MEDS ORDERED: SODIUM CHLORIDE 0.9% 500 ML IV ONE (01:42)
[2020-06-06] MEDS: FentaNYL CITRATE PF 500 MCG in SODIUM CHLORIDE 0.9% 90 ML IV PRN ×6 (02:48→22:22)
[2020-06-06 04:00] VITALS: BP 140/73
[2020-06-06] MEDS: PROPOFOL 1000 MG/ISO-OSM 100 ML IV PRN ×4 (04:09→23:46)
[2020-06-06 05:24] LABS: GLUCOMETER DEV NAME(LOC) 4E.2; GLUCOSE,POINT OF CARE 91 MG/DL (70-110)
[2020-06-06 05:35] LABS: BASOPHILS % (AUTO) 0.3 % (0.0-2.0); EOSINOPHILS % (AUTO) 0.8 % (1.0-6.0); HEMATOCRIT 37.9 % (41-53); HEMOGLOBIN 12.6 g/dL (13.5-17.5); LYMPHOCYTES # (AUTO) 1.3 K/uL (1.0-4.8); LYMPHOCYTES % (AUTO) 9.5 % (22.0-44.0); MEAN CORPUSCULAR HEMOGLOBIN 30.1 pg (26.0-34.0); MEAN CORPUSCULAR HGB CONC 33.2 G/dL (31.0-37.0); MEAN CORPUSCULAR VOLUME 91 fL (80-100); MONOCYTES % (AUTO) 7.2 % (2.0-9.0); NEUTROPHILS # (AUTO) 11.2 K/uL (1.8-7.7); NEUTROPHILS % (AUTO) 82.2 % (40.0-70.0); PLATELET COUNT (AUTO) 200 K/uL (150-450); RED BLOOD CELL COUNT(AUTO) 4.18 MIL/uL (4.50-5.90); RED CELL DISTRIBUTION WIDTH 13.2 % (11.5-14.5)
[2020-06-06 06:16] LABS: ALANINE AMINOTRANSFERASE 175 U/L (12-78); ALBUMIN 2.6 g/dL (3.4-5.0); ALKALINE PHOSPHATASE 90 U/L (46-116); ANION GAP 3 mmol/L (8-16); ASPARTATE AMINOTRANSFERASE 43 U/L (15-37); BILIRUBIN,TOTAL 0.6 mg/dL (0.1-1.0); CALCIUM, TOTAL 8.6 mg/dL (8.8-10.5); CARBON DIOXIDE 33 mmol/L (22-29); CHLORIDE 100 mmol/L (98-107); CREATININE 0.37 mg/dL (0.60-1.30); FERRITIN 719 ng/mL (26-388); GLOMERULAR FILTR. RATE CALC > 60 mL/min (>60); GLUCOSE,RANDOM 148 mg/dL (70-110); POTASSIUM 4.4 mmol/L (3.5-5.1); SODIUM SERUM 136 mmol/L (136-145); TOTAL PROTEIN, SERUM 5.9 g/dL (6.4-8.2); UREA NITROGEN, BLOOD 14 mg/dL (7-18)
[2020-06-06 08:00] VITALS: BP 167/87
[2020-06-06] MEDS: ZINC SULFATE 220 MG CAPSULE PO SCH ×2 (09:26→20:31)
[2020-06-06] MEDS: DOCUSATE SODIUM 100 MG CAPSULE PO SCH ×2 (09:26→20:31)
[2020-06-06] MEDS: FAMOTIDINE 20 MG TABLET PO SCH (09:26)
[2020-06-06] MEDS: METOPROLOL TARTRATE 25 MG TABLET PO SCH ×2 (09:26→20:31)
[2020-06-06] MEDS: DEXAMETHASONE SOD PHOS 4 MG/ML VIAL IVP SCH (09:26)
[2020-06-06] MEDS: ENOXAPARIN SODIUM 60 MG/0.6 ML PF SYRINGE SQ SCH ×2 (09:27→20:30)
[2020-06-06 10:44] LABS: GLUCOSE,POINT OF CARE 144 MG/DL (70-110)
[2020-06-06 12:00] VITALS: BP 152/62
[2020-06-06] MEDS: CloNIDine HCL 0.1 MG TABLET PO PRN (13:31)
[2020-06-06 13:50] LABS: GLUCOSE,POINT OF CARE 128 MG/DL (70-110)
[2020-06-06 16:00] VITALS: BP 91/53
[2020-06-06] MEDS: MAGNESIUM HYDROXIDE SUSPENSION 30 ML UDCUP PO PRN (17:58)
[2020-06-06 19:54] LABS: GLUCOMETER DEV NAME(LOC) 4E.2; GLUCOSE,POINT OF CARE 149 MG/DL (70-110)
[2020-06-06 20:00] VITALS: BP 147/87
[2020-06-06] MEDS: MIDAZOLAM HCL 100 MG in DEXTROSE 5%-WATER 180 ML IV PRN (20:15)
[2020-06-06] MEDS: CefTRIAXone 1 GM/DEXTROSE 50 ML IV SCH (20:30)
[2020-06-07] VITALS: BP 114/56
[2020-06-07] MEDS: FentaNYL CITRATE PF 500 MCG in SODIUM CHLORIDE 0.9% 90 ML IV PRN ×6 (01:02→23:09)
[2020-06-07 04:00] VITALS: BP 132/45
[2020-06-07] MEDS: PROPOFOL 1000 MG/ISO-OSM 100 ML IV PRN ×4 (04:21→23:30)
[2020-06-07 04:26] LABS: GLUCOSE,POINT OF CARE 124 MG/DL (70-110)
[2020-06-07] MEDS ORDERED: SODIUM CHLORIDE 0.9% 500 ML IV ONE (04:36)
[2020-06-07 06:02] LABS: BASOPHILS % (AUTO) 0.5 % (0.0-2.0); EOSINOPHILS % (AUTO) 2.2 % (1.0-6.0); HEMATOCRIT 36.7 % (41-53); HEMOGLOBIN 12.4 g/dL (13.5-17.5); LYMPHOCYTES # (AUTO) 1.8 K/uL (1.0-4.8); LYMPHOCYTES % (AUTO) 14.1 % (22.0-44.0); MEAN CORPUSCULAR HEMOGLOBIN 30.6 pg (26.0-34.0); MEAN CORPUSCULAR HGB CONC 33.7 G/dL (31.0-37.0); MEAN CORPUSCULAR VOLUME 91 fL (80-100); MONOCYTES # (AUTO) 0.8 K/uL (0.1-1.0); MONOCYTES % (AUTO) 6.4 % (2.0-9.0); NEUTROPHILS # (AUTO) 10.1 K/uL (1.8-7.7); NEUTROPHILS % (AUTO) 76.8 % (40.0-70.0); PLATELET COUNT (AUTO) 216 K/uL (150-450); RED BLOOD CELL COUNT(AUTO) 4.04 MIL/uL (4.50-5.90); RED CELL DISTRIBUTION WIDTH 13.7 % (11.5-14.5)
[2020-06-07 06:41] LABS: CARBON DIOXIDE 32 mmol/L (22-29); CHLORIDE 102 mmol/L (98-107); POTASSIUM 3.6 mmol/L (3.5-5.1)
[2020-06-07 07:34] LABS: ALANINE AMINOTRANSFERASE 152 U/L (12-78); ALBUMIN 2.5 g/dL (3.4-5.0); ALKALINE PHOSPHATASE 83 U/L (46-116); ANION GAP 4 mmol/L (8-16); ASPARTATE AMINOTRANSFERASE 46 U/L (15-37); BILIRUBIN,TOTAL 0.6 mg/dL (0.1-1.0); C-REACTIVE PROTEIN QUANT 3.29 mg/dL (0.00-0.30); CALCIUM, TOTAL 8.5 mg/dL (8.8-10.5); FERRITIN 688 ng/mL (26-388); GLOMERULAR FILTR. RATE CALC > 60 mL/min (>60); GLUCOSE,RANDOM 120 mg/dL (70-110); SODIUM SERUM 138 mmol/L (136-145); TOTAL PROTEIN, SERUM 5.7 g/dL (6.4-8.2); UREA NITROGEN, BLOOD 12 mg/dL (7-18)
[2020-06-07 08:00] VITALS: BP 126/52
[2020-06-07] MEDS: FAMOTIDINE 20 MG TABLET PO SCH (08:41)
[2020-06-07] MEDS: METOPROLOL TARTRATE 25 MG TABLET PO SCH ×2 (08:42→20:23)
[2020-06-07] MEDS: DEXAMETHASONE SOD PHOS 4 MG/ML VIAL IVP SCH (08:42)
[2020-06-07] MEDS: DOCUSATE SODIUM 100 MG CAPSULE PO SCH ×2 (08:42→20:23)
[2020-06-07] MEDS: ZINC SULFATE 220 MG CAPSULE PO SCH ×2 (08:42→20:23)
[2020-06-07] MEDS: ENOXAPARIN SODIUM 60 MG/0.6 ML PF SYRINGE SQ SCH ×2 (08:48→20:23)
[2020-06-07 09:11] LABS: ABG A-A DIFF O2 324.5 mmHg (10-20.0); ABG BASE EXCESS 5.5 mmol/L (-2.0-3.0); ABG CARBOXYHEMOGLOBIN 1.5 % (0.0-1.5); ABG HCO3 28.1 mmol/L (22.0-26.0); ABG METHEMOGLOBIN 0.3 % (0.0-1.5); ABG OXYGEN CONTENT 14.2 mL/dL (15.0-23.0); ABG OXYHEMOGLOBIN 82.3 % (94.0-100.0); ABG PCO2 52 mmHg (35-45); ABG PH 7.385 (7.35-7.450); ABG TOTAL HEMOGLOBIN 12.3 G/dL (12.0-18.0); PO2, ARTERIAL BG 46.4 mmHg (79.0-87.0); SOURCE, BLOOD GAS ARTERIAL
[2020-06-07 09:12] LABS: ABG OXYGEN SATURATION 83.8 % (95.0-98.0); O2 DEVICE,BLOOD GAS VENTILATOR (ROOM AIR); SITE, BLOOD GAS ARTERIAL LINE; VENT MODE, BG Press. Control Vent (ROOM AIR)
[2020-06-07 09:13] LABS: PEEP,BG 5 cm H2O; VT, ABG 432 ml
[2020-06-07 12:00] VITALS: BP 107/45
[2020-06-07 12:48] LABS: GLUCOMETER DEV NAME(LOC) 4E.2; GLUCOSE,POINT OF CARE 122 MG/DL (70-110)
[2020-06-07 12:48] LABS: GLUCOMETER DEV NAME(LOC) 4E.2; GLUCOSE,POINT OF CARE 127 MG/DL (70-110)
[2020-06-07] MEDS: MIDAZOLAM HCL 100 MG in DEXTROSE 5%-WATER 180 ML IV PRN (13:18)
[2020-06-07] MEDS ORDERED: VANCOMYCIN HCL 1 GM/D5% WATER 200 ML IV ONE (14:00)
[2020-06-07 16:00] VITALS: BP 103/64
[2020-06-07 18:16] LABS: GLUCOSE,POINT OF CARE 173 MG/DL (70-110)
[2020-06-07 20:00] VITALS: BP 98/50
[2020-06-07] MEDS: VANCOMYCIN HCL 1.25 GM in DEXTROSE 5%-WATER 250 ML IV SCH (20:23)
[2020-06-07] MEDS: CefTRIAXone 1 GM/DEXTROSE 50 ML IV SCH (20:23)
[2020-06-07] MEDS: INSULIN LISPRO 100 UNITS/ML SQ PRN (23:30)
[2020-06-08] VITALS: BP 100/47
[2020-06-08] MEDS: MIDAZOLAM HCL 100 MG in DEXTROSE 5%-WATER 180 ML IV PRN (00:57)
[2020-06-08] MEDS: FentaNYL CITRATE PF 500 MCG in SODIUM CHLORIDE 0.9% 90 ML IV PRN ×6 (01:53→22:00)
[2020-06-08 02:50] LABS: GLUCOSE,POINT OF CARE 144 MG/DL (70-110)
[2020-06-08] MEDS: PROPOFOL 1000 MG/ISO-OSM 100 ML IV PRN ×5 (03:26→20:44)
[2020-06-08 04:00] VITALS: BP 113/46
[2020-06-08 05:11] LABS: BASOPHILS % (AUTO) 0.3 % (0.0-2.0); EOSINOPHILS % (AUTO) 3.3 % (1.0-6.0); HEMATOCRIT 36.1 % (41-53); HEMOGLOBIN 11.9 g/dL (13.5-17.5); LYMPHOCYTES # (AUTO) 1.4 K/uL (1.0-4.8); LYMPHOCYTES % (AUTO) 11.6 % (22.0-44.0); MEAN CORPUSCULAR HEMOGLOBIN 29.9 pg (26.0-34.0); MEAN CORPUSCULAR HGB CONC 32.9 G/dL (31.0-37.0); MEAN CORPUSCULAR VOLUME 91 fL (80-100); MONOCYTES # (AUTO) 0.8 K/uL (0.1-1.0); MONOCYTES % (AUTO) 6.6 % (2.0-9.0); NEUTROPHILS # (AUTO) 9.3 K/uL (1.8-7.7); NEUTROPHILS % (AUTO) 78.2 % (40.0-70.0); PLATELET COUNT (AUTO) 207 K/uL (150-450); RED BLOOD CELL COUNT(AUTO) 3.98 MIL/uL (4.50-5.90); RED CELL DISTRIBUTION WIDTH 13.6 % (11.5-14.5)
[2020-06-08 05:43] LABS: ALANINE AMINOTRANSFERASE 142 U/L (12-78); ALBUMIN 2.2 g/dL (3.4-5.0); ALKALINE PHOSPHATASE 79 U/L (46-116); ANION GAP 3 mmol/L (8-16); ASPARTATE AMINOTRANSFERASE 42 U/L (15-37); BILIRUBIN,TOTAL 0.6 mg/dL (0.1-1.0); C-REACTIVE PROTEIN QUANT 6.95 mg/dL (0.00-0.30); CALCIUM, TOTAL 8.4 mg/dL (8.8-10.5); CARBON DIOXIDE 33 mmol/L (22-29); CHLORIDE 103 mmol/L (98-107); CREATININE 0.37 mg/dL (0.60-1.30); FERRITIN 650 ng/mL (26-388); GLOMERULAR FILTR. RATE CALC > 60 mL/min (>60); GLUCOSE,RANDOM 101 mg/dL (70-110); POTASSIUM 3.3 mmol/L (3.5-5.1); SODIUM SERUM 139 mmol/L (136-145); TOTAL PROTEIN, SERUM 5.4 g/dL (6.4-8.2); UREA NITROGEN, BLOOD 8 mg/dL (7-18)
[2020-06-08 07:32] LABS: GLUCOMETER DEV NAME(LOC) 4E.2; GLUCOSE,POINT OF CARE 89 MG/DL (70-110)
[2020-06-08] MEDS: VANCOMYCIN HCL 1.25 GM in DEXTROSE 5%-WATER 250 ML IV SCH ×2 (07:50→19:53)
[2020-06-08] MEDS: DEXAMETHASONE SOD PHOS 4 MG/ML VIAL IVP SCH (07:51)
[2020-06-08] MEDS: METOPROLOL TARTRATE 25 MG TABLET PO SCH ×3 (07:51→20:59)
[2020-06-08] MEDS: ENOXAPARIN SODIUM 60 MG/0.6 ML PF SYRINGE SQ SCH ×2 (07:51→20:47)
[2020-06-08] MEDS: FAMOTIDINE 20 MG TABLET PO SCH (07:51)
[2020-06-08] MEDS: MAGNESIUM HYDROXIDE SUSPENSION 30 ML UDCUP PO PRN (07:52)
[2020-06-08] MEDS: ZINC SULFATE 220 MG CAPSULE PO SCH ×2 (07:52→20:47)
[2020-06-08] MEDS: DOCUSATE SODIUM 100 MG CAPSULE PO SCH ×2 (07:53→20:59)
[2020-06-08 08:00] VITALS: BP 110/56
[2020-06-08] MEDS: NOREPINEPHRINE 4 MG/D5%-WATER 250 ML IV PRN (10:37)
[2020-06-08] MEDS: MIDAZOLAM HCL 100 MG in SODIUM CHLORIDE 0.9% 180 ML IV PRN ×2 (10:38→22:00)
[2020-06-08] MEDS: CISATRACURIUM BESYLATE 50 MG in SODIUM CHLORIDE 0.9% 245 ML IV PRN ×3 (10:39→21:13)
[2020-06-08] MEDS ORDERED: CISATRACURIUM BESYLATE 2 MG/ML 10 ML VIAL IVP ONE (11:15)
[2020-06-08 12:00] VITALS: BP 100/63
[2020-06-08 12:04] LABS: GLUCOSE,POINT OF CARE 183 MG/DL (70-110)
[2020-06-08] MEDS: INSULIN LISPRO 100 UNITS/ML SQ PRN ×3 (12:22→23:43)
[2020-06-08] MEDS: CefoTEtan DISOD 2 GM/DEXTROSE 50 ML IV SCH (14:11)
[2020-06-08 15:14] LABS: ABG A-A DIFF O2 428.7 mmHg (10-20.0); ABG BASE EXCESS 4.4 mmol/L (-2.0-3.0); ABG CARBOXYHEMOGLOBIN 1.7 % (0.0-1.5); ABG HCO3 25.7 mmol/L (22.0-26.0); ABG METHEMOGLOBIN 0.3 % (0.0-1.5); ABG OXYGEN CONTENT 15.7 mL/dL (15.0-23.0); ABG OXYHEMOGLOBIN 80.8 % (94.0-100.0); ABG PCO2 83 mmHg (35-45); ABG TOTAL HEMOGLOBIN 13.8 G/dL (12.0-18.0); SOURCE, BLOOD GAS ARTERIAL; TEMPERATURE, FAHRENHEIT, BG 98.6 FAHREN (96.0-98.6)
[2020-06-08 15:15] LABS: ABG OXYGEN SATURATION 82.4 % (95.0-98.0); O2 DEVICE,BLOOD GAS VENTILATOR (ROOM AIR); PEEP,BG 8 cm H2O; SITE, BLOOD GAS ARTLINE; VENT MODE, BG PCV/AC (ROOM AIR)
[2020-06-08 16:00] VITALS: BP 98/61
[2020-06-08] MEDS ORDERED: POTASSIUM CHL 10 MEQ/WATER 50 ML IV PRN ×3 (17:30)
[2020-06-08] MEDS: POTASSIUM CHL 10 MEQ/WATER 50 ML IV PRN ×3 (17:59→20:49)
[2020-06-08 18:00] LABS: GLUCOSE,POINT OF CARE 213 MG/DL (70-110)
[2020-06-08 20:00] VITALS: BP 87/59
[2020-06-09] VITALS: BP 87/60
[2020-06-09] MEDS: NOREPINEPHRINE 4 MG/D5%-WATER 250 ML IV PRN ×3 (00:19→07:22)
[2020-06-09] MEDS: CISATRACURIUM BESYLATE 50 MG in SODIUM CHLORIDE 0.9% 245 ML IV PRN ×2 (00:26→07:12)
[2020-06-09] MEDS: CefoTEtan DISOD 2 GM/DEXTROSE 50 ML IV SCH ×2 (00:26→14:54)
[2020-06-09] MEDS: FentaNYL CITRATE PF 500 MCG in SODIUM CHLORIDE 0.9% 90 ML IV PRN ×3 (01:23→13:53)
[2020-06-09] MEDS ORDERED: SODIUM CHLORIDE 0.9% 100 ML ONE (01:27)
[2020-06-09] MEDS: PROPOFOL 1000 MG/ISO-OSM 100 ML IV PRN ×2 (01:31→06:20)
[2020-06-09 04:00] VITALS: BP 102/53
[2020-06-09] MEDS: INSULIN LISPRO 100 UNITS/ML SQ PRN ×3 (05:55→18:14)
[2020-06-09 06:09] LABS: BASOPHILS % (AUTO) 0.3 % (0.0-2.0); EOSINOPHILS % (AUTO) 0.7 % (1.0-6.0); HEMATOCRIT 40.1 % (41-53); HEMOGLOBIN 12.8 g/dL (13.5-17.5); LYMPHOCYTES % (AUTO) 9.8 % (22.0-44.0); MEAN CORPUSCULAR HGB CONC 31.8 G/dL (31.0-37.0); MEAN CORPUSCULAR VOLUME 94 fL (80-100); MONOCYTES # (AUTO) 2.2 K/uL (0.1-1.0); MONOCYTES % (AUTO) 10.6 % (2.0-9.0); NEUTROPHILS % (AUTO) 78.6 % (40.0-70.0); PLATELET COUNT (AUTO) 293 K/uL (150-450); RED BLOOD CELL COUNT(AUTO) 4.26 MIL/uL (4.50-5.90); RED CELL DISTRIBUTION WIDTH 13.9 % (11.5-14.5)
[2020-06-09 06:40] LABS: GLUCOSE,POINT OF CARE 208 MG/DL (70-110)
[2020-06-09 06:40] LABS: GLUCOSE,POINT OF CARE 174 MG/DL (70-110)
[2020-06-09 07:23] LABS: ALBUMIN 2.5 g/dL (3.4-5.0); BILIRUBIN,TOTAL 0.5 mg/dL (0.1-1.0); C-REACTIVE PROTEIN QUANT 14.32 mg/dL (0.00-0.30); CALCIUM, TOTAL 8.6 mg/dL (8.8-10.5); CREATININE 1.35 mg/dL (0.60-1.30); POTASSIUM 5.4 mmol/L (3.5-5.1); TOTAL PROTEIN, SERUM 6.5 g/dL (6.4-8.2); VANCOMYCIN,RANDOM 27.6 mcg/mL (25.0-50.0)
[2020-06-09 08:00] VITALS: BP 93/60
[2020-06-09] MEDS: VANCOMYCIN HCL 1.25 GM in DEXTROSE 5%-WATER 250 ML IV SCH (08:00)
[2020-06-09] MEDS: ENOXAPARIN SODIUM 60 MG/0.6 ML PF SYRINGE SQ SCH (09:27)
[2020-06-09] MEDS: DOCUSATE SODIUM 100 MG CAPSULE PO SCH ×2 (09:27→20:36)
[2020-06-09] MEDS: DEXAMETHASONE SOD PHOS 4 MG/ML VIAL IVP SCH (09:28)
[2020-06-09] MEDS: ZINC SULFATE 220 MG CAPSULE PO SCH ×2 (09:28→20:36)
[2020-06-09] MEDS: FAMOTIDINE 20 MG TABLET PO SCH (09:28)
[2020-06-09] MEDS: METOPROLOL TARTRATE 25 MG TABLET PO SCH ×3 (09:29→21:00)
[2020-06-09] MEDS: PHENYLEPHRINE 200 MG/D5%-WATER 250 ML IV PRN ×2 (10:19→20:49)
[2020-06-09] MEDS: NOREPINEPHRINE BITARTRATE 16 MG in SODIUM CHLORIDE 0.9% 234 ML IV PRN (10:54)
[2020-06-09 12:00] VITALS: BP 100/71
[2020-06-09 12:13] LABS: ABG A-A DIFF O2 548.6 mmHg (10-20.0); ABG BASE EXCESS -7.1 mmol/L (-2.0-3.0); ABG CARBOXYHEMOGLOBIN 2.2 % (0.0-1.5); ABG HCO3 17.4 mmol/L (22.0-26.0); ABG METHEMOGLOBIN 0.3 % (0.0-1.5); ABG OXYGEN CONTENT 17.8 mL/dL (15.0-23.0); ABG OXYGEN SATURATION 94.7 % (95.0-98.0); ABG OXYHEMOGLOBIN 92.3 % (94.0-100.0); ABG TOTAL HEMOGLOBIN 13.7 G/dL (12.0-18.0); PO2, ARTERIAL BG 78.2 mmHg (79.0-87.0); SOURCE, BLOOD GAS ARTERIAL
[2020-06-09 12:42] LABS: ABG PCO2 86 mmHg (35-45); ABG PH 7.054 (7.35-7.450); O2 DEVICE,BLOOD GAS VENTILATOR (ROOM AIR); SITE, BLOOD GAS A LINE; VENT MODE, BG Press. Control Vent (ROOM AIR)
[2020-06-09 12:43] LABS: PEEP,BG 8 cm H2O; SPONTANEOUS VT, BG 320 ml
[2020-06-09] MEDS ORDERED: CASPOFUNGIN ACETATE 70 MG in SODIUM CHLORIDE 0.9% 250 ML IV ONE (14:30)
[2020-06-09 14:59] LABS: ABG A-A DIFF O2 548.3 mmHg (10-20.0); ABG BASE EXCESS -7.6 mmol/L (-2.0-3.0); ABG CARBOXYHEMOGLOBIN 1.8 % (0.0-1.5); ABG HCO3 17.3 mmol/L (22.0-26.0); ABG METHEMOGLOBIN 0.3 % (0.0-1.5); ABG OXYGEN CONTENT 18.2 mL/dL (15.0-23.0); ABG OXYGEN SATURATION 94.9 % (95.0-98.0); ABG OXYHEMOGLOBIN 92.9 % (94.0-100.0); ABG TOTAL HEMOGLOBIN 13.9 G/dL (12.0-18.0); PO2, ARTERIAL BG 85.6 mmHg (79.0-87.0); SOURCE, BLOOD GAS ARTERIAL; TEMPERATURE, FAHRENHEIT, BG 99.7 FAHREN (96.0-98.6)
[2020-06-09 15:32] LABS: ABG PCO2 78 mmHg (35-45); ABG PH 7.079 (7.35-7.450); SITE, BLOOD GAS A LINE
[2020-06-09 15:33] LABS: O2 DEVICE,BLOOD GAS VENTILATOR (ROOM AIR); PEEP,BG 8 cm H2O; SPONTANEOUS VT, BG 340 ml; VENT MODE, BG Press. Control Vent (ROOM AIR)
[2020-06-09 18:04] LABS: GLUCOSE,POINT OF CARE 198 MG/DL (70-110)
[2020-06-09] MEDS: BUMETANIDE 0.25 MG/ML 4 ML VIAL IVP ONE ×2 (18:30→20:35)
[2020-06-09] MEDS ORDERED: SODIUM ZIRCONIUM CYCLOSILICATE 5 GM POWDER PACKET NG ONE (18:30)
[2020-06-09 19:56] LABS: GLUCOSE,POINT OF CARE 227 MG/DL (70-110)
[2020-06-09 20:00] VITALS: BP 76/56
[2020-06-09] MEDS ORDERED: VANCOMYCIN HCL 1 GM/D5% WATER 200 ML IV SCH (20:00)
[2020-06-10] VITALS: BP 64/46
[2020-06-10] MEDS: CefoTEtan DISOD 2 GM/DEXTROSE 50 ML IV SCH (00:35)
[2020-06-10 00:36] VITALS: BP 54/35
[2020-06-10] MEDS: NOREPINEPHRINE BITARTRATE 16 MG in SODIUM CHLORIDE 0.9% 234 ML IV PRN (00:36)
[2020-06-10 04:58] LABS: GLUCOSE,POINT OF CARE 189 MG/DL (70-110)
[2020-06-10] MEDS ORDERED: ENOXAPARIN SODIUM 80 MG/0.8 ML PF SYRINGE SQ SCH (08:00)
[2020-06-10] MEDS ORDERED: CASPOFUNGIN ACETATE 50 MG in SODIUM CHLORIDE 0.9% 250 ML IV SCH (15:00)
[2020-06-11 12:26] LABS: QUANTIFERON+, Nil Value 0.01 IU/mL; QUANTIFERON+,Mitogen Value 0.35 IU/mL; QUANTIFERON+,TB1 Antigen Value 0.02 IU/mL; QUANTIFERON, TB GOLD PLUS Indeterminate (Negative)
== END 2020-06-10 02:25 | disposition expired | DRG 870 ==
LOC: EMS 18:42 → 5N 20:09 → ICU 05-21 15:20
PROVIDERS: ADMIT Internal Medicine; ATTEND Internal Medicine
PROC: 30233L1 Transfusion of Nonautologous Fresh Plasma into Peripheral Vein, Percutaneous Approach (ICD-10-PCS; 2020-05-19)
PROC: 30233K1 Transfusion of Nonautologous Frozen Plasma into Peripheral Vein, Percutaneous Approach (ICD-10-PCS; 2020-05-19)
PROC: 05HY33Z Insertion of Infusion Device into Upper Vein, Percutaneous Approach (ICD-10-PCS; 2020-05-21)
PROC: B54MZZA Ultrasonography of Right Upper Extremity Veins, Guidance (ICD-10-PCS; 2020-05-21)
PROC: 0BH17EZ Insertion of Endotracheal Airway into Trachea, Via Natural or Artificial Opening (ICD-10-PCS; principal; 2020-05-27)
PROC: 5A1955Z Respiratory Ventilation, Greater than 96 Consecutive Hours (ICD-10-PCS; 2020-05-27)
DX: A41.9 Sepsis, unspecified organism (principal); U07.1 COVID-19; J12.89 Other viral pneumonia; J96.01 Acute respiratory failure with hypoxia; D68.59 Other primary thrombophilia; E87.1 Hypo-osmolality and hyponatremia; E87.2 Acidosis; Z99.11 Dependence on respirator [ventilator] status; N17.9 Acute kidney failure, unspecified; E11.9 Type 2 diabetes mellitus without complications; D72.810 Lymphocytopenia; I10 Essential (primary) hypertension; R13.10 Dysphagia, unspecified; R79.89 Other specified abnormal findings of blood chemistry; R34 Anuria and oliguria; E87.5 Hyperkalemia; Z66 Do not resuscitate
CPT/HCPCS: 36245; 36569; 36600; 76937; 82728; 82805; 83605; 83615; 84132; 84443; 85379; 85384; 86140; 86480; 86850; 86900; 86901; 86927; 87040; 87070; 87081; 87205; 87449; 93005; 93306; 94002; 94003; 94761; G0238; G0378; J0456; J0637; J0692; J0696; J1100; J1650; J2250; J2370; J2704; J3010; J3370; J3480; J3490; J7030; J7040; J7050; J7060; P9046; 36415-L1; 36415-TC; 71045-TC; 80202-TC; U0003-CS